=== PATIENT | male | born 1960 | race Caucasian/White ===

== ENCOUNTER 2020-07-21 21:20 | Inpatient (IN) ==
[2020-07-21] MEDS ORDERED: ONDANSETRON 4 MG/2 ML VIAL IV STA (22:19)
[2020-07-21] MEDS ORDERED: MORPHINE 4 MG/1 ML VIAL IV ONE (22:19)
[2020-07-21] MEDS ORDERED: SODIUM CHLORIDE 0.9% 1,000 ML IV STA (22:19)
[2020-07-21 22:48] LABS: Hematocrit 23.1 VOL% (42.0-52.0); Hemoglobin 8.4 GM/DL (14.0-18.0); Immature Granulocytes % 12.5 %; Immature Granulocytes Absolute 0.12 #; Lymphocytes # 0.1 10*3/uL (1.4-4.0); Lymphocytes % 14.6 % (21.2-54.2); Mean Corpuscular HGB Conc 36.4 GM/DL (32-36); Mean Corpuscular Volume 86.5 FL (87-102); Mean Platelet Volume 9.8 FL (9.6-12.0); Monocytes % 7.3 % (1.7-12.7); Neutrophils % 64.6 % (38.7-73.9); Platelet Count 169 T/CUMM (130-400); Red Blood Count 2.67 MC/CUMM (3.8-5.5); Red Cell Distribution Width 13.1 % (9.3-17.3)
[2020-07-21 23:09] LABS: Alanine Aminotransferase 12 U/L (16-61); Alkaline Phosphatase 121 U/L (45-117); Amylase 37 U/L (25-115); Aspartate Amino Transferase 10 U/L (0-37); Blood Urea Nitrogen 47 MG/DL (7-18); Calcium 8.6 MG/DL (8.5-10.1); Estimated Glom Filtration Rate 38 ML/MIN; Glucose 163 MG/DL (74-106); Osmolality,Calculated 281.4 MOS/KG (273-304); Total Protein 7.1 G/DL (6.4-8.3)
[2020-07-21 23:18] LABS: Band Neutrophils 2 % (0-10); Eosinophils 3 % (0-10); Lymphocytes 19 % (20-55); Metamyelocytes 1 %; Platelet Estimate Normal; Segmented Neutrophils 65 % (50-85); Total Cells Counted 100
[2020-07-21 23:19] LABS: Atypical Lymphocytes Few; Hypochromasia Slight; Ovalocytes Few
[2020-07-22] MEDS ORDERED: FILGRASTIM-SNDZ 300 MCG/0.5 ML SYRINGE SUBCUT ONE (00:10)
[2020-07-22] MEDS ORDERED: MORPHINE 4 MG/1 ML VIAL IV ONE (00:47)
[2020-07-22 01:08] LABS: INR 4.8; PT Patient Result 47.1 SECS (9.8-11.9); Partial Thromboplastin Time 26.8 SECS (23.9-33.8)
[2020-07-22] MEDS ORDERED: chlorproMAZINE INJ 50 MG in SODIUM CHLORIDE 0.9% 100 ML IV PRN (01:10)
[2020-07-22] MEDS ORDERED: chlorproMAZINE INJ 25 MG in SODIUM CHLORIDE 0.9% 100 ML IV PRN (01:10)
[2020-07-22] MEDS ORDERED: LACTULOSE 20 GM/30 ML UDCUP PO PRN (01:10)
[2020-07-22] MEDS ORDERED: traMADol 50 MG TABLET PO PRN (01:10)
[2020-07-22] MEDS ORDERED: chlorproMAZINE 25 MG TABLET PO PRN (01:10)
[2020-07-22] MEDS ORDERED: ALPRAZolam 0.25 MG TABLET PO PRN (01:10)
[2020-07-22] MEDS ORDERED: PROMETHAZINE INJ 25 MG in SODIUM CHLORIDE 0.9% 50 ML IV PRN (01:10)
[2020-07-22] MEDS ORDERED: diphenhydrAMINE CAP 25 MG CAPSULE PO PRN (01:10)
[2020-07-22] MEDS ORDERED: MAGNESIUM HYDROXIDE SUSP 30 ML UDCUP PO PRN (01:10)
[2020-07-22] MEDS ORDERED: BENZTROPINE 2 MG/2 ML AMP IV PRN (01:10)
[2020-07-22] MEDS: SODIUM CHLORIDE 0.9% 1,000 ML IV SCH ×2 (01:43→06:33)
[2020-07-22] MEDS: ALUMINUM/MAGNES/SIMETH MAX STR 30 ML UDCUP PO PRN ×3 (05:01→22:54)
[2020-07-22] MEDS: LOPERAMIDE 2 MG CAPSULE PO PRN ×2 (09:00→22:54)
[2020-07-22] MEDS: FILGRASTIM-SNDZ 300 MCG/0.5 ML SYRINGE SUBCUT SCH (09:00)
[2020-07-22] MEDS: DEXTROSE 5% NACL 0.9% 1,000 ML IV SCH ×3 (09:00→22:54)
[2020-07-22 09:02] LABS: Bilirubin,Urine Negative (Negative); Blood, Urine Negative (Negative); Glucose,Urine (UA) Negative (Negative); Hyaline Casts,Urine 41 /LPF (0-3); Ketones,Urine Negative (Negative); Mucus,Urine Occasional /LPF (Occasional); Nitrite,Urine Negative (Negative); Protein,Urine Negative; RBC,Urine <1 /HPF (0-4); Squamous Epithelial Cell,Urine Occasional /HPF (0-10); Urine Appearance CLEAR (Clear); Urine Color Yellow (Yellow); Urine Specific Gravity 1.017 (1.001-1.035); Urine Urobilinogen < 2.0 EU/DL (0.2-1.0); WBC,Urine <1 /HPF (0-6)
[2020-07-23 04:33] LABS: Albumin 2.2 G/DL (3.4-5.0); Bilirubin,Total 1.1 MG/DL (0.2-1.0); Calcium 7.6 MG/DL (8.5-10.1); Total Protein 5.1 G/DL (6.4-8.3)
[2020-07-23] MEDS: DEXTROSE 5% NACL 0.9% 1,000 ML IV SCH (05:18)
[2020-07-23 06:46] LABS: Eosinophils % 2.6 % (0.00-10.9); Hematocrit 18.2 VOL% (42.0-52.0); Hemoglobin 6.5 GM/DL (14.0-18.0); Immature Granulocytes % 15.4 %; Immature Granulocytes Absolute 0.18 #; Lymphocytes # 0.2 10*3/uL (1.4-4.0); Lymphocytes % 13.7 % (21.2-54.2); Mean Corpuscular HGB Conc 35.7 GM/DL (32-36); Mean Corpuscular Volume 87.1 FL (87-102); Mean Platelet Volume 9.9 FL (9.6-12.0); Monocytes % 7.7 % (1.7-12.7); Neutrophils % 60.6 % (38.7-73.9); Platelet Count 109 T/CUMM (130-400); Red Blood Count 2.09 MC/CUMM (3.8-5.5); Red Cell Distribution Width 13.2 % (9.3-17.3); White Blood Count 1.2 T/CUMM (4-12)
[2020-07-23 07:18] LABS: Atypical Lymphocytes Few; Band Neutrophils 3 % (0-10); Eosinophils 2 % (0-10); Hypochromasia 1+; Lymphocytes 19 % (20-55); Microcytosis 1+; Platelet Estimate Decreased; Segmented Neutrophils 62 % (50-85); Total Cells Counted 100
[2020-07-23] MEDS ORDERED: SODIUM CHLORIDE 0.9% 1,000 ML IV PRN (07:57)
[2020-07-23] MEDS: FILGRASTIM-SNDZ 300 MCG/0.5 ML SYRINGE SUBCUT SCH (08:25)
[2020-07-23] MEDS: DEXT 5% NACL 0.45% KCL 20 MEQ 20 MEQ/1,000 ML BAG IV SCH ×3 (09:44→20:41)
[2020-07-23] MEDS: LOPERAMIDE 2 MG CAPSULE PO PRN ×2 (11:45→18:57)
[2020-07-23] MEDS: ALUMINUM/MAGNES/SIMETH MAX STR 30 ML UDCUP PO PRN (18:57)
[2020-07-23] MEDS: TEMAZEPAM 7.5 MG CAPSULE PO PRN (20:36)
[2020-07-24] MEDS: ALUMINUM/MAGNES/SIMETH MAX STR 30 ML UDCUP PO PRN ×4 (00:21→20:21)
[2020-07-24 04:07] LABS: Eosinophils # 0.1 10*3/uL (0.0-0.87); Eosinophils % 10.4 % (0.00-10.9); Hematocrit 31.5 VOL% (42.0-52.0); Hemoglobin 11.2 GM/DL (14.0-18.0); Immature Granulocytes % 7.5 %; Immature Granulocytes Absolute 0.08 #; Lymphocytes # 0.3 10*3/uL (1.4-4.0); Lymphocytes % 23.6 % (21.2-54.2); Mean Corpuscular HGB Conc 35.6 GM/DL (32-36); Mean Corpuscular Volume 85.1 FL (87-102); Mean Platelet Volume 9.7 FL (9.6-12.0); Monocytes % 17.9 % (1.7-12.7); Neutrophils % 40.6 % (38.7-73.9); Platelet Count 138 T/CUMM (130-400); Red Cell Distribution Width 13.5 % (9.3-17.3); White Blood Count 1.1 T/CUMM (4-12)
[2020-07-24] MEDS: DEXT 5% NACL 0.45% KCL 20 MEQ 20 MEQ/1,000 ML BAG IV SCH ×2 (04:29→09:47)
[2020-07-24 04:30] LABS: Albumin 2.3 G/DL (3.4-5.0); Bilirubin,Total 2.9 MG/DL (0.2-1.0); Calcium 7.4 MG/DL (8.5-10.1); Osmolality,Calculated 258.5 MOS/KG (273-304); Total Protein 5.6 G/DL (6.4-8.3)
[2020-07-24 06:29] LABS: Band Neutrophils 4 % (0-10); Eosinophils 12 % (0-10); Lymphocytes 32 % (20-55); Platelet Estimate Adequate; Segmented Neutrophils 30 % (50-85); Smudge Cells Few; Total Cells Counted 100
[2020-07-24 06:30] LABS: Anisocytosis 1+
[2020-07-24] MEDS: guaiFENesin 200 MG/10 ML UDCUP PO PRN ×3 (06:32→20:21)
[2020-07-24] MEDS: FILGRASTIM-SNDZ 300 MCG/0.5 ML SYRINGE SUBCUT SCH (09:48)
[2020-07-24] MEDS: LOPERAMIDE 2 MG CAPSULE PO PRN ×3 (09:48→20:21)
[2020-07-24] MEDS: SODIUM CHLOR 0.9% KCL 20 MEQ 20 MEQ/1,000 ML BAG IV SCH ×2 (12:26→21:06)
[2020-07-24] MEDS: CETIRIZINE 10 MG TABLET PO SCH (13:43)
[2020-07-24] MEDS: TEMAZEPAM 7.5 MG CAPSULE PO PRN (20:20)
[2020-07-24] MEDS: MYLANTA/LIDO VISC 2:1 300 ML BOTTLE SWISH/SPIT PRN (20:20)
[2020-07-24] MEDS: MYLANTA/LIDO VISC 2:1 300 ML BOTTLE SWISH/SWAL PRN (20:26)
[2020-07-25] MEDS: MYLANTA/LIDO VISC 2:1 300 ML BOTTLE SWISH/SWAL PRN (00:05)
[2020-07-25] MEDS: guaiFENesin 200 MG/10 ML UDCUP PO PRN (00:05)
[2020-07-25] MEDS: LOPERAMIDE 2 MG CAPSULE PO PRN (00:05)
[2020-07-25] MEDS: SODIUM CHLOR 0.9% KCL 20 MEQ 20 MEQ/1,000 ML BAG IV SCH (04:58)
[2020-07-25 05:39] LABS: Basophils % 1.3 % (0.0-0.8); Eosinophils # 0.1 10*3/uL (0.0-0.87); Eosinophils % 4.4 % (0.00-10.9); Hematocrit 35.1 VOL% (42.0-52.0); Hemoglobin 12.8 GM/DL (14.0-18.0); Immature Granulocytes % 4.4 %; Immature Granulocytes Absolute 0.07 #; Lymphocytes # 0.2 10*3/uL (1.4-4.0); Lymphocytes % 14.4 % (21.2-54.2); Mean Corpuscular HGB Conc 36.5 GM/DL (32-36); Mean Corpuscular Volume 84.6 FL (87-102); Mean Platelet Volume 10.2 FL (9.6-12.0); Monocytes % 23.1 % (1.7-12.7); Neutrophils % 52.4 % (38.7-73.9); Platelet Count 187 T/CUMM (130-400); Red Blood Count 4.15 MC/CUMM (3.8-5.5); Red Cell Distribution Width 13.5 % (9.3-17.3); White Blood Count 1.6 T/CUMM (4-12)
[2020-07-25 05:54] LABS: Albumin 2.4 G/DL (3.4-5.0); Bilirubin,Total 3.7 MG/DL (0.2-1.0); Calcium 7.7 MG/DL (8.5-10.1); Osmolality,Calculated 258.9 MOS/KG (273-304); Total Protein 6.3 G/DL (6.4-8.3)
[2020-07-25 07:01] LABS: Band Neutrophils 11 % (0-10); Eosinophils 3 % (0-10); Lymphocytes 22 % (20-55); Segmented Neutrophils 30 % (50-85); Total Cells Counted 100
[2020-07-25 07:02] LABS: Anisocytosis 1+; Ovalocytes 1+; Platelet Estimate Normal
[2020-07-25] MEDS: FILGRASTIM-SNDZ 300 MCG/0.5 ML SYRINGE SUBCUT SCH (08:58)
[2020-07-25] MEDS: CETIRIZINE 10 MG TABLET PO SCH (08:58)
[2020-07-25 12:53] LABS: Calcium 7.9 MG/DL (8.5-10.1); Osmolality,Calculated 258.3 MOS/KG (273-304)
[2020-07-25 13:19] LABS: Free T4 (Free Thyroxine) 1.34 NG/DL (0.76-1.46); Thyroid Stimulating Hormone 0.58 uIU/ml (0.358-3.74)
[2020-07-25] MEDS ORDERED: MAGNESIUM SULF RIDER 4 GM in PREMIX 1 EACH IV PRN (13:31)
[2020-07-25] MEDS ORDERED: POTASSIUM CHLORIDE 20 MEQ TABLET PO PRN (13:31)
[2020-07-25 13:54] LABS: Calcium 7.9 MG/DL (8.5-10.1); Osmolality,Calculated 260.3 MOS/KG (273-304)
[2020-07-25 14:56] LABS: Bilirubin,Urine Negative (Negative); Blood, Urine Moderate mg/dL (Negative); Glucose,Urine (UA) Negative (Negative); Hyaline Casts,Urine 14 /LPF (0-3); Ketones,Urine Negative (Negative); Mucus,Urine Occasional /LPF (Occasional); Nitrite,Urine Negative (Negative); Protein,Urine Negative; RBC,Urine 4 /HPF (0-4); Squamous Epithelial Cell,Urine Occasional /HPF (0-10); Urine Appearance CLEAR (Clear); Urine Color Amber (Yellow); Urine Specific Gravity 1.019 (1.001-1.035); Urine Urobilinogen < 2.0 EU/DL (0.2-1.0); WBC,Urine 5 /HPF (0-6)
[2020-07-25] MEDS ORDERED: SODIUM CHLORIDE 0.9% 1,000 ML IV ONE ×2 (15:22→15:28)
[2020-07-25] MEDS ORDERED: NOREPINEPHRINE 4 MG/4 ML VIAL IV ONE (15:23)
[2020-07-25 15:26] LABS: Hepatitis B Surface Ag Quant < 0.10 Index; Hepatitis B Surface Ag Result Negative (Negative); Hepatitis C Virus Ab Result Negative (Negative)
[2020-07-25] MEDS ORDERED: SODIUM CHLORIDE 0.9% 1,000 ML IV SCH (15:30)
[2020-07-25] MEDS: NOREPINEPHRINE 8 MG in SODIUM CHLORIDE 0.9% 242 ML IV PRN (15:30)
[2020-07-25] MEDS ORDERED: SUCCINYLCHOLINE 200 MG/10 ML VIAL ONE (15:36)
[2020-07-25] MEDS ORDERED: MIDAZOLAM 2 MG/2 ML VIAL IV ONE ×2 (15:36→16:15)
[2020-07-25] MEDS ORDERED: MIDAZOLAM 10 MG/2 ML VIAL ONE (15:36)
[2020-07-25] MEDS ORDERED: SUCCINYLCHOLINE 200 MG/10 ML VIAL IV ONE (15:40)
[2020-07-25] MEDS ORDERED: CALCIUM GLUCONATE 1,000 MG in SODIUM CHLORIDE 0.9% 100 ML IV ONE (15:48)
[2020-07-25] MEDS ORDERED: MIDAZOLAM 100 MG in SODIUM CHLORIDE 0.9% 80 ML IV PRN (15:53)
[2020-07-25 16:02] LABS: Basophils % 0.7 % (0.0-0.8); Eosinophils % 0.7 % (0.00-10.9); Hematocrit 36.6 VOL% (42.0-52.0); Hemoglobin 12.9 GM/DL (14.0-18.0); Immature Granulocytes % 9.6 %; Immature Granulocytes Absolute 0.26 #; Lymphocytes # 0.6 10*3/uL (1.4-4.0); Lymphocytes % 20.7 % (21.2-54.2); Mean Corpuscular HGB Conc 35.2 GM/DL (32-36); Mean Platelet Volume 10.7 FL (9.6-12.0); Monocytes % 8.1 % (1.7-12.7); NRBC # 0.07 10*3/uL; Neutrophils % 60.2 % (38.7-73.9); Platelet Count 224 T/CUMM (130-400); Red Blood Count 4.16 MC/CUMM (3.8-5.5); Red Cell Distribution Width 13.8 % (9.3-17.3); White Blood Count 2.7 T/CUMM (4-12)
[2020-07-25 16:22] LABS: ABG Base Excess -7.2 MMOL/L (-2.5-2.5); ABG HCO3 18.6 MMOL/L (20-26); ABG PCO2 29.8 MM HG (35-48); ABG PH 7.364 (7.35-7.45); ABG PO2 92.5 MM HG (80-95); ABG TCO2 15.1 MMOL/L (23-27)
[2020-07-25 16:26] LABS: Calcium 7.6 MG/DL (8.5-10.1); Osmolality,Calculated 264.1 MOS/KG (273-304)
[2020-07-25 17:09] LABS: Band Neutrophils 11 % (0-10); Eosinophils 1 % (0-10); Lymphocytes 27 % (20-55); Platelet Estimate Adequate; Segmented Neutrophils 50 % (50-85); Total Cells Counted 100
[2020-07-25 17:10] LABS: Anisocytosis Slight
[2020-07-25] MEDS: PIPERACILLIN/TAZOBACTAM 3,375 MG in SODIUM CHLORIDE 0.9% 100 ML IV SCH (17:36)
[2020-07-25] MEDS: SODIUM BICARB INJ 150 MEQ in STERILE WATER INJ 850 ML IV SCH (17:36)
[2020-07-25] MEDS: VANCOMYCIN 50 MG/ML 60 ML/BOTTLE PO SCH (17:37)
[2020-07-25 17:55] LABS: Calcium 7.3 MG/DL (8.5-10.1); Osmolality,Calculated 272.2 MOS/KG (273-304)
[2020-07-25] MEDS ORDERED: VANCOMYCIN INJ 1,500 MG in SODIUM CHLORIDE 0.9% 500 ML IV ONE (18:00)
[2020-07-25] MEDS ORDERED: GLUCAGON 1 MG VIAL IM PRN (18:01)
[2020-07-25] MEDS ORDERED: DEXTROSE 50% 25 GM/50 ML VIAL IV PRN (18:01)
[2020-07-25] MEDS: POTASSIUM CHLORIDE RIDER 20 MEQ in PREMIX 1 EACH IV PRN ×2 (18:12→19:38)
[2020-07-25] MEDS ORDERED: ALBUMIN 25% 50 GM in PREMIX 1 EACH IV PRN (18:48)
[2020-07-25] MEDS ORDERED: ALBUMIN 25% 50 GM in PREMIX 1 EACH IV ONE (19:00)
[2020-07-25 20:33] LABS: ABG Base Excess -2.7 MMOL/L (-2.5-2.5); ABG HCO3 22.2 MMOL/L (20-26); ABG Oxygen Saturation 98.6 % (95-100); ABG PCO2 31.5 MM HG (35-48); ABG PH 7.429 (7.35-7.45); ABG TCO2 18.9 MMOL/L (23-27)
[2020-07-25] MEDS: POTASSIUM CHLORIDE RIDER 10 MEQ in PREMIX 1 EACH IV PRN (20:40)
[2020-07-25 20:56] LABS: Calcium 7.3 MG/DL (8.5-10.1); Osmolality,Calculated 270.5 MOS/KG (273-304)
[2020-07-26] MEDS: VANCOMYCIN 50 MG/ML 60 ML/BOTTLE PO SCH ×5 (00:56→23:06)
[2020-07-26 03:26] LABS: Calcium 7.8 MG/DL (8.5-10.1); Osmolality,Calculated 271.4 MOS/KG (273-304)
[2020-07-26] MEDS: POTASSIUM CHLORIDE RIDER 20 MEQ in PREMIX 1 EACH IV PRN ×4 (03:42→20:04)
[2020-07-26] MEDS: SODIUM BICARB INJ 150 MEQ in STERILE WATER INJ 850 ML IV SCH (03:43)
[2020-07-26 04:07] LABS: ABG Base Excess 6.8 MMOL/L (-2.5-2.5); ABG HCO3 28.6 MMOL/L (20-26); ABG Oxygen Saturation 98.8 % (95-100); ABG PCO2 31.6 MM HG (35-48); ABG PH 7.575 (7.35-7.45); ABG TCO2 29.6 MMOL/L (23-27)
[2020-07-26 04:36] LABS: Basophils % 1.1 % (0.0-0.8); Eosinophils % 0.6 % (0.00-10.9); Hematocrit 24.8 VOL% (42.0-52.0); Hemoglobin 9.2 GM/DL (14.0-18.0); Immature Granulocytes % 11.8 %; Immature Granulocytes Absolute 0.42 #; Lymphocytes # 0.3 10*3/uL (1.4-4.0); Lymphocytes % 7.3 % (21.2-54.2); Mean Corpuscular HGB Conc 37.1 GM/DL (32-36); Mean Corpuscular Volume 84.4 FL (87-102); Mean Platelet Volume 10.7 FL (9.6-12.0); Monocytes % 8.7 % (1.7-12.7); NRBC # 0.05 10*3/uL; Neutrophils % 70.5 % (38.7-73.9); Platelet Count 155 T/CUMM (130-400); Red Blood Count 2.94 MC/CUMM (3.8-5.5); Red Cell Distribution Width 13.2 % (9.3-17.3); White Blood Count 3.6 T/CUMM (4-12)
[2020-07-26 05:12] LABS: Band Neutrophils 14 % (0-10); Lymphocytes 8 % (20-55); Metamyelocytes 1 %; Myelocytes 2 %; Segmented Neutrophils 67 % (50-85); Total Cells Counted 100
[2020-07-26 05:13] LABS: Hypochromasia 1+; Microcytosis 1+; Ovalocytes Slight; Platelet Estimate Adequate
[2020-07-26] MEDS: PIPERACILLIN/TAZOBACTAM 3,375 MG in SODIUM CHLORIDE 0.9% 100 ML IV SCH (05:28)
[2020-07-26] MEDS: NOREPINEPHRINE 8 MG in SODIUM CHLORIDE 0.9% 242 ML IV PRN (05:29)
[2020-07-26 05:31] LABS: Bilirubin,Total 4.6 MG/DL (0.2-1.0); Calcium 7.7 MG/DL (8.5-10.1); Osmolality,Calculated 267.6 MOS/KG (273-304); Total Protein 5.8 G/DL (6.4-8.3)
[2020-07-26] MEDS: POTASSIUM CHLORIDE RIDER 10 MEQ in PREMIX 1 EACH IV PRN (05:49)
[2020-07-26 06:31] LABS: Calcium 7.7 MG/DL (8.5-10.1); Osmolality,Calculated 269.5 MOS/KG (273-304)
[2020-07-26] MEDS ORDERED: COSYNTROPIN 0.25 MG VIAL IV ONE ×2 (08:00)
[2020-07-26] MEDS: DEXT 5% NACL 0.9% KCL 20 MEQ 20 MEQ/1,000 ML BAG IV SCH ×4 (08:49→23:05)
[2020-07-26] MEDS: MEROPENEM 500 MG in SODIUM CHLORIDE 0.9% 100 ML IV SCH ×2 (08:51→20:05)
[2020-07-26] MEDS: FILGRASTIM-SNDZ 300 MCG/0.5 ML SYRINGE SUBCUT SCH (08:54)
[2020-07-26] MEDS: PANTOPRAZOLE 40 MG VIAL IV SCH (08:57)
[2020-07-26] MEDS: MENTHOL/ZINC OXIDE OINT 71 GM JAR TOP SCH ×2 (15:42→23:06)
[2020-07-26] MEDS: RIFAMPIN INJ 600 MG in SODIUM CHLORIDE 0.9% 100 ML IV SCH (15:43)
[2020-07-26 16:24] LABS: Albumin 2.4 G/DL (3.4-5.0); Bilirubin,Total 3.4 MG/DL (0.2-1.0); Calcium 7.1 MG/DL (8.5-10.1); Osmolality,Calculated 281.9 MOS/KG (273-304); Total Protein 5.1 G/DL (6.4-8.3)
[2020-07-26] MEDS: INSULIN LISPRO 100 UNIT/ML SUBCUT SCH (17:12)
[2020-07-26] MEDS ORDERED: VANCOMYCIN INJ 1,000 MG in SODIUM CHLORIDE 0.9% 250 ML IV PRN (18:00)
[2020-07-27] MEDS: DEXT 5% NACL 0.9% KCL 20 MEQ 20 MEQ/1,000 ML BAG IV SCH ×5 (00:29→21:46)
[2020-07-27] MEDS: INSULIN LISPRO 100 UNIT/ML SUBCUT SCH ×4 (01:04→17:36)
[2020-07-27 04:56] LABS: ABG Base Excess -1.4 MMOL/L (-2.5-2.5); ABG HCO3 23.2 MMOL/L (20-26); ABG Oxygen Saturation 97.5 % (95-100); ABG PCO2 32.9 MM HG (35-48); ABG PH 7.439 (7.35-7.45); ABG PO2 96.9 MM HG (80-95); ABG TCO2 20.6 MMOL/L (23-27)
[2020-07-27 05:24] LABS: Basophils % 0.3 % (0.0-0.8); Eosinophils % 0.3 % (0.00-10.9); Hematocrit 24.9 VOL% (42.0-52.0); Hemoglobin 8.8 GM/DL (14.0-18.0); Immature Granulocytes % 11.1 %; Immature Granulocytes Absolute 1.09 #; Lymphocytes # 0.3 10*3/uL (1.4-4.0); Lymphocytes % 2.6 % (21.2-54.2); Mean Corpuscular HGB Conc 35.3 GM/DL (32-36); Mean Corpuscular Volume 87.7 FL (87-102); Monocytes % 6.9 % (1.7-12.7); NRBC # 0.06 10*3/uL; Neutrophils % 78.8 % (38.7-73.9); Platelet Count 106 T/CUMM (130-400); Red Blood Count 2.84 MC/CUMM (3.8-5.5); Red Cell Distribution Width 13.9 % (9.3-17.3); White Blood Count 9.9 T/CUMM (4-12)
[2020-07-27 05:31] LABS: Albumin 2.1 G/DL (3.4-5.0); Calcium 7.4 MG/DL (8.5-10.1); Osmolality,Calculated 292.7 MOS/KG (273-304); Total Protein 4.7 G/DL (6.4-8.3)
[2020-07-27 05:49] LABS: Band Neutrophils 9 % (0-10); Lymphocytes 4 % (20-55); Platelet Estimate Decreased; Segmented Neutrophils 77 % (50-85); Total Cells Counted 100
[2020-07-27 05:50] LABS: Burr Cells Few; Hypochromasia 1+; Microcytosis 1+; Ovalocytes Slight
[2020-07-27] MEDS: VANCOMYCIN 50 MG/ML 60 ML/BOTTLE PO SCH ×2 (06:18→14:03)
[2020-07-27] MEDS ORDERED: LINEZOLID INJ 600 MG in PREMIX 1 EACH IV SCH (08:00)
[2020-07-27] MEDS: PANTOPRAZOLE 40 MG VIAL IV SCH (08:40)
[2020-07-27] MEDS: MENTHOL/ZINC OXIDE OINT 71 GM JAR TOP SCH ×2 (08:40→21:45)
[2020-07-27] MEDS: MEROPENEM 500 MG in SODIUM CHLORIDE 0.9% 100 ML IV SCH ×2 (08:40→22:15)
[2020-07-27] MEDS: FILGRASTIM-SNDZ 300 MCG/0.5 ML SYRINGE SUBCUT SCH (08:41)
[2020-07-27 15:24] LABS: Albumin 1.9 G/DL (3.4-5.0); Bilirubin,Total 4.2 MG/DL (0.2-1.0); Calcium 7.3 MG/DL (8.5-10.1); Osmolality,Calculated 298.8 MOS/KG (273-304); Total Protein 4.4 G/DL (6.4-8.3)
[2020-07-27] MEDS: RIFAMPIN INJ 600 MG in SODIUM CHLORIDE 0.9% 100 ML IV SCH (16:19)
[2020-07-28] MEDS: INSULIN LISPRO 100 UNIT/ML SUBCUT SCH ×4 (03:41→17:42)
[2020-07-28] MEDS: DEXT 5% NACL 0.9% KCL 20 MEQ 20 MEQ/1,000 ML BAG IV SCH ×3 (04:16→12:10)
[2020-07-28 05:27] LABS: ABG Base Excess -2.4 MMOL/L (-2.5-2.5); ABG HCO3 22.4 MMOL/L (20-26); ABG Oxygen Saturation 98.9 % (95-100); ABG PCO2 32.3 MM HG (35-48); ABG PH 7.428 (7.35-7.45); ABG TCO2 19.7 MMOL/L (23-27)
[2020-07-28 06:11] LABS: Basophils % 0.1 % (0.0-0.8); Eosinophils # 0.1 10*3/uL (0.0-0.87); Eosinophils % 0.4 % (0.00-10.9); Hematocrit 20.8 VOL% (42.0-52.0); Immature Granulocytes % 17.5 %; Immature Granulocytes Absolute 2.07 #; Lymphocytes # 0.4 10*3/uL (1.4-4.0); Lymphocytes % 3.5 % (21.2-54.2); Mean Corpuscular HGB Conc 33.2 GM/DL (32-36); Mean Corpuscular Volume 92.4 FL (87-102); Monocytes % 11.2 % (1.7-12.7); NRBC # 0.06 10*3/uL; Neutrophils % 67.3 % (38.7-73.9); Red Cell Distribution Width 14.6 % (9.3-17.3); White Blood Count 11.9 T/CUMM (4-12)
[2020-07-28 06:15] LABS: Hemoglobin 6.9 GM/DL (14.0-18.0); Red Blood Count 2.25 MC/CUMM (3.8-5.5)
[2020-07-28 06:16] LABS: Platelet Count 94 T/CUMM (130-400)
[2020-07-28 06:31] LABS: Band Neutrophils 4 % (0-10); Eosinophils 1 % (0-10); Lymphocytes 7 % (20-55); Myelocytes 3 %; Segmented Neutrophils 77 % (50-85); Total Cells Counted 100
[2020-07-28 06:32] LABS: Burr Cells Slight; Hypochromasia 1+; Microcytosis Slight; Ovalocytes Slight; Platelet Estimate Decreased
[2020-07-28] MEDS ORDERED: SODIUM CHLORIDE 0.9% 1,000 ML IV PRN (07:17)
[2020-07-28 07:28] LABS: Albumin 1.8 G/DL (3.4-5.0); Bilirubin,Total 5.7 MG/DL (0.2-1.0); Calcium 7.7 MG/DL (8.5-10.1); Osmolality,Calculated 304.1 MOS/KG (273-304); Total Protein 4.3 G/DL (6.4-8.3)
[2020-07-28 07:40] LABS: Prealbumin 3.2 MG/DL (20-40)
[2020-07-28] MEDS: MEROPENEM 500 MG in SODIUM CHLORIDE 0.9% 100 ML IV SCH ×2 (09:24→20:38)
[2020-07-28] MEDS: PANTOPRAZOLE 40 MG VIAL IV SCH (09:24)
[2020-07-28] MEDS: MENTHOL/ZINC OXIDE OINT 71 GM JAR TOP SCH ×2 (09:24→20:39)
[2020-07-28] MEDS: CHOLESTYRAMINE 4 GM PACK PO SCH ×2 (09:24→20:38)
[2020-07-28] MEDS: LINEZOLID INJ 600 MG in PREMIX 1 EACH IV SCH ×2 (09:25→20:39)
[2020-07-28] MEDS: LORazepam 2 MG/1 ML VIAL IV PRN ×2 (12:55→17:56)
[2020-07-28] MEDS: RIFAMPIN INJ 600 MG in SODIUM CHLORIDE 0.9% 100 ML IV SCH (15:37)
[2020-07-28] MEDS: METOPROLOL TARTRATE 25 MG TABLET PO SCH ×2 (15:43→20:38)
[2020-07-28 17:34] LABS: Albumin 1.7 G/DL (3.4-5.0); Bilirubin,Total 6.2 MG/DL (0.2-1.0); Calcium 7.9 MG/DL (8.5-10.1); Osmolality,Calculated 301.9 MOS/KG (273-304); Total Protein 4.3 G/DL (6.4-8.3)
[2020-07-29] MEDS: INSULIN LISPRO 100 UNIT/ML SUBCUT SCH ×6 (00:44→21:27)
[2020-07-29 04:44] LABS: ABG Base Excess -2.4 MMOL/L (-2.5-2.5); ABG HCO3 22.4 MMOL/L (20-26); ABG Oxygen Saturation 98.3 % (95-100); ABG PH 7.471 (7.35-7.45); ABG PO2 96.9 MM HG (80-95); ABG TCO2 18.7 MMOL/L (23-27)
[2020-07-29 05:03] LABS: Basophils % 0.2 % (0.0-0.8); Eosinophils # 0.1 10*3/uL (0.0-0.87); Eosinophils % 0.6 % (0.00-10.9); Hematocrit 29.3 VOL% (42.0-52.0); Immature Granulocytes % 12.6 %; Immature Granulocytes Absolute 1.07 #; Lymphocytes # 0.5 10*3/uL (1.4-4.0); Lymphocytes % 6.1 % (21.2-54.2); Mean Corpuscular HGB Conc 34.1 GM/DL (32-36); Mean Corpuscular Volume 89.6 FL (87-102); Mean Platelet Volume 10.2 FL (9.6-12.0); Monocytes % 12.2 % (1.7-12.7); NRBC # 0.03 10*3/uL; Neutrophils % 68.3 % (38.7-73.9); Red Cell Distribution Width 15.3 % (9.3-17.3); White Blood Count 8.5 T/CUMM (4-12)
[2020-07-29 05:05] LABS: Red Blood Count 3.27 MC/CUMM (3.8-5.5)
[2020-07-29 05:06] LABS: Platelet Count 60 T/CUMM (130-400)
[2020-07-29 05:24] LABS: Band Neutrophils 3 % (0-10); Hypochromasia 1+; Lymphocytes 5 % (20-55); Microcytosis 1+; Nucleated Red Blood Cells 1 (0-5); Platelet Estimate Decreased; Segmented Neutrophils 81 % (50-85); Total Cells Counted 100
[2020-07-29 05:26] LABS: Albumin 1.7 G/DL (3.4-5.0); Bilirubin,Total 6.7 MG/DL (0.2-1.0); Calcium 7.8 MG/DL (8.5-10.1); Osmolality,Calculated 304.7 MOS/KG (273-304); Total Protein 4.1 G/DL (6.4-8.3)
[2020-07-29] MEDS: DEXT 5% NACL 0.9% KCL 20 MEQ 20 MEQ/1,000 ML BAG IV SCH (05:51)
[2020-07-29] MEDS: LORazepam 2 MG/1 ML VIAL IV PRN ×3 (07:26→22:30)
[2020-07-29] MEDS: DEXT 5% NACL 0.45% KCL 20 MEQ 20 MEQ/1,000 ML BAG IV SCH ×3 (09:27→20:30)
[2020-07-29] MEDS: PANTOPRAZOLE 40 MG VIAL IV SCH (09:29)
[2020-07-29] MEDS: MENTHOL/ZINC OXIDE OINT 71 GM JAR TOP SCH ×2 (09:29→21:00)
[2020-07-29] MEDS: LINEZOLID INJ 600 MG in PREMIX 1 EACH IV SCH ×2 (09:29→21:00)
[2020-07-29] MEDS: MEROPENEM 500 MG in SODIUM CHLORIDE 0.9% 100 ML IV SCH ×2 (09:29→20:53)
[2020-07-29] MEDS: CHOLESTYRAMINE 4 GM PACK PO SCH ×2 (10:10→20:53)
[2020-07-29] MEDS: METOPROLOL TARTRATE 25 MG TABLET PO SCH ×2 (10:10→20:53)
[2020-07-29 10:40] LABS: PT Patient Result 82.8 SECS (9.8-11.9)
[2020-07-29 10:42] LABS: INR 8.7
[2020-07-29] MEDS: RIFAMPIN INJ 600 MG in SODIUM CHLORIDE 0.9% 100 ML IV SCH (16:09)
[2020-07-29] MEDS: PHYTONADIONE INJ 5 MG in SODIUM CHLORIDE 0.9% 50 ML IV SCH (16:09)
[2020-07-30] MEDS: DEXT 5% NACL 0.45% KCL 20 MEQ 20 MEQ/1,000 ML BAG IV SCH ×4 (01:48→23:02)
[2020-07-30 05:59] LABS: Basophils % 0.1 % (0.0-0.8); Eosinophils % 0.3 % (0.00-10.9); Hematocrit 30.2 VOL% (42.0-52.0); Hemoglobin 10.2 GM/DL (14.0-18.0); Immature Granulocytes % 6.8 %; Lymphocytes # 0.6 10*3/uL (1.4-4.0); Lymphocytes % 8.1 % (21.2-54.2); Mean Corpuscular HGB Conc 33.8 GM/DL (32-36); Mean Corpuscular Volume 91.2 FL (87-102); Mean Platelet Volume 10.3 FL (9.6-12.0); Monocytes % 11.8 % (1.7-12.7); Neutrophils % 72.9 % (38.7-73.9); Platelet Count 53 T/CUMM (130-400); Red Blood Count 3.31 MC/CUMM (3.8-5.5); Red Cell Distribution Width 15.9 % (9.3-17.3); White Blood Count 7.4 T/CUMM (4-12)
[2020-07-30 06:21] LABS: Lymphocytes 10 % (20-55); Platelet Estimate Decreased; Segmented Neutrophils 83 % (50-85); Total Cells Counted 100
[2020-07-30 06:22] LABS: Hypochromasia 1+; Microcytosis 1+
[2020-07-30 06:30] LABS: Albumin 1.7 G/DL (3.4-5.0); Bilirubin,Total 7.5 MG/DL (0.2-1.0); Calcium 8.1 MG/DL (8.5-10.1); Osmolality,Calculated 296.3 MOS/KG (273-304); Total Protein 4.4 G/DL (6.4-8.3)
[2020-07-30] MEDS: INSULIN LISPRO 100 UNIT/ML SUBCUT SCH ×4 (07:47→20:01)
[2020-07-30 09:01] LABS: INR 1.8; PT Patient Result 18.7 SECS (9.8-11.9)
[2020-07-30] MEDS ORDERED: SODIUM CHLORIDE 0.9% 1,000 ML IV PRN (09:11)
[2020-07-30 09:17] LABS: ABG Base Excess -4.2 MMOL/L (-2.5-2.5); ABG HCO3 20.9 MMOL/L (20-26); ABG Oxygen Saturation 97.8 % (95-100); ABG PO2 85.9 MM HG (80-95); ABG TCO2 16.5 MMOL/L (23-27); Allen Test Positive; Pt O2 Delivery Device Room Air
[2020-07-30] MEDS: CHOLESTYRAMINE 4 GM PACK PO SCH ×2 (09:47→20:09)
[2020-07-30] MEDS: PANTOPRAZOLE 40 MG VIAL IV SCH (09:47)
[2020-07-30] MEDS: MEROPENEM 500 MG in SODIUM CHLORIDE 0.9% 100 ML IV SCH ×2 (09:47→21:30)
[2020-07-30] MEDS: METOPROLOL TARTRATE 25 MG TABLET PO SCH ×2 (09:47→20:09)
[2020-07-30] MEDS: LINEZOLID INJ 600 MG in PREMIX 1 EACH IV SCH ×2 (09:48→21:30)
[2020-07-30] MEDS: MENTHOL/ZINC OXIDE OINT 71 GM JAR TOP SCH ×2 (10:25→22:03)
[2020-07-30] MEDS: PHYTONADIONE INJ 5 MG in SODIUM CHLORIDE 0.9% 50 ML IV SCH (11:00)
[2020-07-30] MEDS ORDERED: INFLUENZA VIRUS VACCINE 0.5 ML SYRINGE IM ONE (13:30)
[2020-07-30] MEDS: RIFAMPIN INJ 600 MG in SODIUM CHLORIDE 0.9% 100 ML IV SCH (16:53)
[2020-07-30] MEDS ORDERED: FAMOTIDINE 20 MG TABLET PO ONE (18:01)
[2020-07-30] MEDS ORDERED: methylPREDNISolone SOD SUC 40 MG/1 ML VIAL IV ONE (18:01)
[2020-07-30] MEDS: ACETAMINOPHEN 325 MG TABLET PO PRN (18:58)
[2020-07-30] MEDS ORDERED: guaiFENesin 200 MG/10 ML UDCUP PO PRN (22:06)
[2020-07-31 04:01] LABS: Eosinophils % 0.2 % (0.00-10.9); Hematocrit 21.9 VOL% (42.0-52.0); Hemoglobin 7.2 GM/DL (14.0-18.0); Immature Granulocytes % 5.4 %; Immature Granulocytes Absolute 0.22 #; Lymphocytes # 0.5 10*3/uL (1.4-4.0); Lymphocytes % 11.7 % (21.2-54.2); Mean Corpuscular HGB Conc 32.9 GM/DL (32-36); Mean Platelet Volume 12.2 FL (9.6-12.0); Monocytes % 14.4 % (1.7-12.7); Neutrophils % 68.3 % (38.7-73.9); Red Blood Count 2.38 MC/CUMM (3.8-5.5); Red Cell Distribution Width 15.9 % (9.3-17.3); White Blood Count 4.1 T/CUMM (4-12)
[2020-07-31 04:09] LABS: Platelet Count 35 T/CUMM (130-400)
[2020-07-31 04:21] LABS: Albumin 1.6 G/DL (3.4-5.0); Bilirubin,Total 4.2 MG/DL (0.2-1.0); Calcium 7.5 MG/DL (8.5-10.1); Osmolality,Calculated 278.7 MOS/KG (273-304); Total Protein 4.2 G/DL (6.4-8.3)
[2020-07-31] MEDS: DEXT 5% NACL 0.45% KCL 20 MEQ 20 MEQ/1,000 ML BAG IV SCH ×2 (04:48→17:48)
[2020-07-31 05:13] LABS: Band Neutrophils 1 % (0-10); Eosinophils 1 % (0-10); Lymphocytes 13 % (20-55); Segmented Neutrophils 77 % (50-85); Total Cells Counted 100
[2020-07-31 05:14] LABS: Hypochromasia 1+; Microcytosis 1+; Platelet Estimate Decreased
[2020-07-31] MEDS ORDERED: SODIUM CHLORIDE 0.9% 1,000 ML IV PRN (07:08)
[2020-07-31 07:31] LABS: INR 1.4; PT Patient Result 15.1 SECS (9.8-11.9)
[2020-07-31] MEDS: INSULIN LISPRO 100 UNIT/ML SUBCUT SCH ×4 (07:44→20:28)
[2020-07-31] MEDS: MEROPENEM 500 MG in SODIUM CHLORIDE 0.9% 100 ML IV SCH ×2 (08:23→20:27)
[2020-07-31] MEDS: MENTHOL/ZINC OXIDE OINT 71 GM JAR TOP SCH ×2 (09:15→20:28)
[2020-07-31] MEDS: CHOLESTYRAMINE 4 GM PACK PO SCH ×2 (09:16→20:27)
[2020-07-31] MEDS: METOPROLOL TARTRATE 25 MG TABLET PO SCH ×2 (09:16→20:27)
[2020-07-31] MEDS: PANTOPRAZOLE 40 MG VIAL IV SCH (09:16)
[2020-07-31] MEDS: PHYTONADIONE INJ 5 MG in SODIUM CHLORIDE 0.9% 50 ML IV SCH (10:00)
[2020-07-31] MEDS: VANCOMYCIN INJ 500 MG in SODIUM CHLORIDE 0.9% 100 ML IV SCH (11:14)
[2020-07-31 11:51] LABS: INR 1.3
[2020-07-31] MEDS: RIFAMPIN INJ 600 MG in SODIUM CHLORIDE 0.9% 100 ML IV SCH (16:48)
[2020-08-01] MEDS: VANCOMYCIN INJ 500 MG in SODIUM CHLORIDE 0.9% 100 ML IV SCH ×2 (00:12→12:24)
[2020-08-01] MEDS: DEXT 5% NACL 0.45% KCL 20 MEQ 20 MEQ/1,000 ML BAG IV SCH ×3 (01:13→17:02)
[2020-08-01 05:44] LABS: Basophils % 0.2 % (0.0-0.8); Eosinophils % 0.6 % (0.00-10.9); Hematocrit 29.7 VOL% (42.0-52.0); Immature Granulocytes % 3.5 %; Immature Granulocytes Absolute 0.18 #; Lymphocytes # 0.5 10*3/uL (1.4-4.0); Lymphocytes % 9.5 % (21.2-54.2); Mean Corpuscular Volume 90.5 FL (87-102); Mean Platelet Volume 11.7 FL (9.6-12.0); Monocytes % 12.4 % (1.7-12.7); Neutrophils % 73.8 % (38.7-73.9); Red Cell Distribution Width 15.1 % (9.3-17.3); White Blood Count 5.2 T/CUMM (4-12)
[2020-08-01 05:53] LABS: Hemoglobin 10.1 GM/DL (14.0-18.0); Platelet Count 40 T/CUMM (130-400); Red Blood Count 3.28 MC/CUMM (3.8-5.5)
[2020-08-01 05:55] LABS: INR 1.3; PT Patient Result 13.6 SECS (9.8-11.9)
[2020-08-01 06:01] LABS: Calcium 7.4 MG/DL (8.5-10.1); Osmolality,Calculated 275.7 MOS/KG (273-304)
[2020-08-01 06:04] LABS: Albumin 1.5 G/DL (3.4-5.0); Bilirubin,Total 4.9 MG/DL (0.2-1.0); Calcium 7.4 MG/DL (8.5-10.1); Osmolality,Calculated 275.7 MOS/KG (273-304); Total Protein 4.1 G/DL (6.4-8.3)
[2020-08-01 06:06] LABS: Band Neutrophils 1 % (0-10); Lymphocytes 4 % (20-55); Platelet Estimate Decreased; Segmented Neutrophils 88 % (50-85); Total Cells Counted 100
[2020-08-01] MEDS: INSULIN LISPRO 100 UNIT/ML SUBCUT SCH ×4 (07:18→20:21)
[2020-08-01] MEDS: PANTOPRAZOLE 40 MG VIAL IV SCH (08:39)
[2020-08-01] MEDS: PHYTONADIONE INJ 5 MG in SODIUM CHLORIDE 0.9% 50 ML IV SCH (08:39)
[2020-08-01] MEDS: METOPROLOL TARTRATE 25 MG TABLET PO SCH ×2 (08:40→20:18)
[2020-08-01] MEDS: MEROPENEM 500 MG in SODIUM CHLORIDE 0.9% 100 ML IV SCH ×2 (08:40→20:18)
[2020-08-01] MEDS: MENTHOL/ZINC OXIDE OINT 71 GM JAR TOP SCH ×2 (08:40→20:21)
[2020-08-01] MEDS: CHOLESTYRAMINE 4 GM PACK PO SCH ×2 (08:40→20:18)
[2020-08-01] MEDS: RIFAMPIN INJ 600 MG in SODIUM CHLORIDE 0.9% 100 ML IV SCH (16:13)
[2020-08-02] MEDS: DEXT 5% NACL 0.45% KCL 20 MEQ 20 MEQ/1,000 ML BAG IV SCH ×3 (02:03→23:29)
[2020-08-02 06:00] LABS: Basophils % 0.2 % (0.0-0.8); Eosinophils % 0.4 % (0.00-10.9); Hematocrit 30.2 VOL% (42.0-52.0); Hemoglobin 10.2 GM/DL (14.0-18.0); Immature Granulocytes Absolute 0.11 #; Lymphocytes # 0.5 10*3/uL (1.4-4.0); Lymphocytes % 8.9 % (21.2-54.2); Mean Corpuscular HGB Conc 33.8 GM/DL (32-36); Mean Corpuscular Volume 91.2 FL (87-102); Mean Platelet Volume 11.7 FL (9.6-12.0); Monocytes % 9.1 % (1.7-12.7); Neutrophils % 79.4 % (38.7-73.9); Red Blood Count 3.31 MC/CUMM (3.8-5.5); Red Cell Distribution Width 15.2 % (9.3-17.3); White Blood Count 5.5 T/CUMM (4-12)
[2020-08-02 06:05] LABS: Platelet Count 52 T/CUMM (130-400)
[2020-08-02 06:06] LABS: INR 1.4; PT Patient Result 14.5 SECS (9.8-11.9)
[2020-08-02 06:24] LABS: Hypochromasia 1+; Lymphocytes 5 % (20-55); Microcytosis 1+; Ovalocytes Slight; Platelet Estimate Decreased; Segmented Neutrophils 86 % (50-85); Total Cells Counted 100
[2020-08-02 06:28] LABS: Albumin 1.4 G/DL (3.4-5.0); Bilirubin,Total 4.7 MG/DL (0.2-1.0); Calcium 7.1 MG/DL (8.5-10.1); Osmolality,Calculated 274.7 MOS/KG (273-304); Total Protein 4.2 G/DL (6.4-8.3)
[2020-08-02] MEDS: INSULIN LISPRO 100 UNIT/ML SUBCUT SCH ×4 (08:22→22:13)
[2020-08-02] MEDS: PANTOPRAZOLE 40 MG VIAL IV SCH (08:29)
[2020-08-02] MEDS: CHOLESTYRAMINE 4 GM PACK PO SCH ×2 (08:29→21:17)
[2020-08-02] MEDS: METOPROLOL TARTRATE 25 MG TABLET PO SCH ×2 (08:29→21:18)
[2020-08-02] MEDS: MENTHOL/ZINC OXIDE OINT 71 GM JAR TOP SCH ×2 (08:33→22:13)
[2020-08-02] MEDS: BENZONATATE 100 MG CAPSULE PO PRN ×2 (12:30→21:18)
[2020-08-02] MEDS: VANCOMYCIN INJ 500 MG in SODIUM CHLORIDE 0.9% 100 ML IV SCH ×3 (12:31→23:30)
[2020-08-03 05:49] LABS: Basophils % 0.3 % (0.0-0.8); Eosinophils # 0.1 10*3/uL (0.0-0.87); Eosinophils % 0.9 % (0.00-10.9); Hemoglobin 9.9 GM/DL (14.0-18.0); Immature Granulocytes % 1.3 %; Immature Granulocytes Absolute 0.09 #; Lymphocytes # 0.5 10*3/uL (1.4-4.0); Lymphocytes % 7.6 % (21.2-54.2); Mean Corpuscular HGB Conc 34.1 GM/DL (32-36); Mean Corpuscular Volume 91.2 FL (87-102); Mean Platelet Volume 11.4 FL (9.6-12.0); Monocytes % 11.1 % (1.7-12.7); Neutrophils % 78.8 % (38.7-73.9); Red Blood Count 3.18 MC/CUMM (3.8-5.5); Red Cell Distribution Width 15.4 % (9.3-17.3); White Blood Count 6.9 T/CUMM (4-12)
[2020-08-03 05:50] LABS: Platelet Count 70 T/CUMM (130-400)
[2020-08-03 05:51] LABS: INR 1.4; PT Patient Result 14.6 SECS (9.8-11.9)
[2020-08-03 06:03] LABS: Calcium 7.6 MG/DL (8.5-10.1); Osmolality,Calculated 269.1 MOS/KG (273-304)
[2020-08-03 06:10] LABS: Albumin 1.4 G/DL (3.4-5.0); Bilirubin,Total 3.7 MG/DL (0.2-1.0); Calcium 7.3 MG/DL (8.5-10.1); Osmolality,Calculated 272.8 MOS/KG (273-304); Total Protein 4.2 G/DL (6.4-8.3)
[2020-08-03 06:16] LABS: Hypochromasia 1+; Lymphocytes 8 % (20-55); Microcytosis Slight; Platelet Estimate Decreased; Segmented Neutrophils 88 % (50-85); Total Cells Counted 100
[2020-08-03] MEDS: INSULIN LISPRO 100 UNIT/ML SUBCUT SCH ×4 (07:52→21:44)
[2020-08-03 08:25] LABS: Albumin 1.4 G/DL (3.4-5.0); Bilirubin,Total 2.7 MG/DL (0.2-1.0); Calcium 7.1 MG/DL (8.5-10.1); Osmolality,Calculated 272.8 MOS/KG (273-304); Total Protein 3.9 G/DL (6.4-8.3)
[2020-08-03] MEDS ORDERED: CHOLESTYRAMINE 4 GM PACK PO SCH (09:00)
[2020-08-03] MEDS: MAGNESIUM CHLORIDE 64 MG TABLET PO SCH (09:02)
[2020-08-03] MEDS: PANTOPRAZOLE 40 MG VIAL IV SCH (09:02)
[2020-08-03] MEDS: BENZONATATE 100 MG CAPSULE PO PRN ×2 (09:02→21:25)
[2020-08-03] MEDS: METOPROLOL TARTRATE 25 MG TABLET PO SCH ×2 (09:02→21:25)
[2020-08-03] MEDS: MENTHOL/ZINC OXIDE OINT 71 GM JAR TOP SCH ×3 (09:04→21:26)
[2020-08-03] MEDS: VANCOMYCIN INJ 500 MG in SODIUM CHLORIDE 0.9% 100 ML IV SCH ×2 (12:47→23:20)
[2020-08-03] MEDS: DEXT 5% NACL 0.45% KCL 20 MEQ 20 MEQ/1,000 ML BAG IV SCH (15:40)
[2020-08-03] MEDS: CHOLESTYRAMINE 4 GM PACK PO SCH (21:26)
[2020-08-04] MEDS: DEXT 5% NACL 0.45% KCL 20 MEQ 20 MEQ/1,000 ML BAG IV SCH ×3 (02:21→13:33)
[2020-08-04 05:00] LABS: Basophils % 0.5 % (0.0-0.8); Eosinophils # 0.1 10*3/uL (0.0-0.87); Eosinophils % 1.5 % (0.00-10.9); Hematocrit 28.8 VOL% (42.0-52.0); Hemoglobin 9.6 GM/DL (14.0-18.0); Immature Granulocytes % 0.9 %; Immature Granulocytes Absolute 0.06 #; Lymphocytes # 0.7 10*3/uL (1.4-4.0); Lymphocytes % 10.2 % (21.2-54.2); Mean Corpuscular HGB Conc 33.3 GM/DL (32-36); Mean Corpuscular Volume 92.6 FL (87-102); Mean Platelet Volume 11.5 FL (9.6-12.0); Monocytes % 11.5 % (1.7-12.7); Neutrophils % 75.4 % (38.7-73.9); Red Blood Count 3.11 MC/CUMM (3.8-5.5); Red Cell Distribution Width 16.1 % (9.3-17.3); White Blood Count 6.6 T/CUMM (4-12)
[2020-08-04 05:03] LABS: Platelet Count 86 T/CUMM (130-400)
[2020-08-04 05:05] LABS: INR 1.3; PT Patient Result 14.1 SECS (9.8-11.9)
[2020-08-04 05:23] LABS: Band Neutrophils 1 % (0-10); Lymphocytes 9 % (20-55); Segmented Neutrophils 87 % (50-85); Total Cells Counted 100
[2020-08-04 05:24] LABS: Microcytosis 1+; Polychromasia Slight
[2020-08-04 05:25] LABS: Platelet Estimate Decreased
[2020-08-04 05:28] LABS: Albumin 1.3 G/DL (3.4-5.0); Bilirubin,Total 2.4 MG/DL (0.2-1.0); Calcium 6.9 MG/DL (8.5-10.1); Total Protein 4.2 G/DL (6.4-8.3)
[2020-08-04] MEDS: INSULIN LISPRO 100 UNIT/ML SUBCUT SCH ×4 (08:34→21:06)
[2020-08-04] MEDS: PANTOPRAZOLE 40 MG VIAL IV SCH (08:34)
[2020-08-04] MEDS: CHOLESTYRAMINE 4 GM PACK PO SCH ×2 (08:35→21:06)
[2020-08-04] MEDS: MAGNESIUM CHLORIDE 64 MG TABLET PO SCH (08:37)
[2020-08-04] MEDS: MENTHOL/ZINC OXIDE OINT 71 GM JAR TOP SCH ×2 (11:10→21:06)
[2020-08-04] MEDS: METOPROLOL TARTRATE 25 MG TABLET PO SCH ×2 (13:57→21:05)
[2020-08-04] MEDS: VANCOMYCIN INJ 500 MG in SODIUM CHLORIDE 0.9% 100 ML IV SCH (14:05)
[2020-08-05] MEDS: VANCOMYCIN INJ 500 MG in SODIUM CHLORIDE 0.9% 100 ML IV SCH ×2 (00:23→14:51)
[2020-08-05] MEDS: MYLANTA/LIDO VISC 2:1 300 ML BOTTLE SWISH/SPIT PRN (00:27)
[2020-08-05] MEDS: BENZONATATE 100 MG CAPSULE PO PRN ×2 (01:27→08:51)
[2020-08-05] MEDS: ONDANSETRON 4 MG/2 ML VIAL IV PRN (04:10)
[2020-08-05] MEDS: DEXT 5% NACL 0.45% KCL 20 MEQ 20 MEQ/1,000 ML BAG IV SCH (04:17)
[2020-08-05 07:08] LABS: Basophils % 0.7 % (0.0-0.8); Eosinophils # 0.1 10*3/uL (0.0-0.87); Eosinophils % 2.3 % (0.00-10.9); Hematocrit 26.9 VOL% (42.0-52.0); Hemoglobin 8.9 GM/DL (14.0-18.0); Immature Granulocytes % 0.9 %; Immature Granulocytes Absolute 0.04 #; Lymphocytes # 0.6 10*3/uL (1.4-4.0); Mean Corpuscular HGB Conc 33.1 GM/DL (32-36); Mean Corpuscular Volume 92.8 FL (87-102); Mean Platelet Volume 11.2 FL (9.6-12.0); Monocytes % 13.3 % (1.7-12.7); Neutrophils % 68.8 % (38.7-73.9); Red Cell Distribution Width 17.1 % (9.3-17.3)
[2020-08-05 07:11] LABS: Platelet Count 98 T/CUMM (130-400); White Blood Count 4.4 T/CUMM (4-12)
[2020-08-05 07:14] LABS: INR 1.3; PT Patient Result 14.1 SECS (9.8-11.9)
[2020-08-05 07:31] LABS: Albumin 1.3 G/DL (3.4-5.0); Bilirubin,Total 2.5 MG/DL (0.2-1.0); Calcium 7.3 MG/DL (8.5-10.1); Total Protein 4.2 G/DL (6.4-8.3)
[2020-08-05 07:35] LABS: Band Neutrophils 1 % (0-10); Hypochromasia 1+; Lymphocytes 11 % (20-55); Microcytosis 1+; Platelet Estimate Decreased; Segmented Neutrophils 76 % (50-85); Total Cells Counted 100
[2020-08-05 08:02] LABS: Albumin 1.3 G/DL (3.4-5.0); Bilirubin,Total 2.8 MG/DL (0.2-1.0); Calcium 7.4 MG/DL (8.5-10.1); Osmolality,Calculated 272.8 MOS/KG (273-304); Total Protein 4.2 G/DL (6.4-8.3)
[2020-08-05] MEDS: INSULIN LISPRO 100 UNIT/ML SUBCUT SCH ×3 (08:49→20:42)
[2020-08-05] MEDS: PANTOPRAZOLE 40 MG VIAL IV SCH (08:51)
[2020-08-05] MEDS: MAGNESIUM CHLORIDE 64 MG TABLET PO SCH (08:51)
[2020-08-05] MEDS: METOPROLOL TARTRATE 25 MG TABLET PO SCH ×2 (08:52→20:43)
[2020-08-05] MEDS: MENTHOL/ZINC OXIDE OINT 71 GM JAR TOP SCH ×2 (08:52→20:43)
[2020-08-05] MEDS: CHOLESTYRAMINE 4 GM PACK PO SCH ×2 (15:29→20:43)
[2020-08-06 06:06] LABS: Basophils % 0.7 % (0.0-0.8); Eosinophils # 0.2 10*3/uL (0.0-0.87); Eosinophils % 3.7 % (0.00-10.9); Hematocrit 25.3 VOL% (42.0-52.0); Hemoglobin 8.4 GM/DL (14.0-18.0); Immature Granulocytes % 1.2 %; Immature Granulocytes Absolute 0.05 #; Lymphocytes # 0.9 10*3/uL (1.4-4.0); Lymphocytes % 21.4 % (21.2-54.2); Mean Corpuscular HGB Conc 33.2 GM/DL (32-36); Mean Platelet Volume 11.8 FL (9.6-12.0); Platelet Count 114 T/CUMM (130-400); Red Blood Count 2.72 MC/CUMM (3.8-5.5); Red Cell Distribution Width 17.5 % (9.3-17.3); White Blood Count 4.3 T/CUMM (4-12)
[2020-08-06 06:29] LABS: Albumin 1.2 G/DL (3.4-5.0); Calcium 7.2 MG/DL (8.5-10.1); Osmolality,Calculated 271.8 MOS/KG (273-304); Total Protein 4.1 G/DL (6.4-8.3)
[2020-08-06 06:35] LABS: Anisocytosis 3+; Band Neutrophils 6 % (0-10); Burr Cells 2+; Eosinophils 8 % (0-10); Lymphocytes 17 % (20-55); Platelet Estimate Adequate; Polychromasia Slight; Segmented Neutrophils 52 % (50-85); Smudge Cells Few; Total Cells Counted 100
[2020-08-06] MEDS: DEXT 5% NACL 0.45% KCL 20 MEQ 20 MEQ/1,000 ML BAG IV SCH ×3 (09:26→23:07)
[2020-08-06] MEDS: METOPROLOL TARTRATE 25 MG TABLET PO SCH ×2 (09:27→23:06)
[2020-08-06] MEDS: PANTOPRAZOLE 40 MG VIAL IV SCH (09:27)
[2020-08-06] MEDS: MENTHOL/ZINC OXIDE OINT 71 GM JAR TOP SCH ×2 (09:27→23:07)
[2020-08-06] MEDS: CHOLESTYRAMINE 4 GM PACK PO SCH ×2 (09:27→23:09)
[2020-08-06] MEDS: INSULIN LISPRO 100 UNIT/ML SUBCUT SCH ×4 (09:28→23:08)
[2020-08-06] MEDS: MAGNESIUM CHLORIDE 64 MG TABLET PO SCH (09:29)
[2020-08-06] MEDS: ONDANSETRON 4 MG/2 ML VIAL IV PRN (12:15)
[2020-08-06] MEDS: VANCOMYCIN INJ 500 MG in SODIUM CHLORIDE 0.9% 100 ML IV SCH (15:50)
[2020-08-06] MEDS: BENZONATATE 100 MG CAPSULE PO PRN ×2 (16:18→23:06)
[2020-08-07] MEDS: DEXT 5% NACL 0.45% KCL 20 MEQ 20 MEQ/1,000 ML BAG IV SCH ×8 (02:30→21:41)
[2020-08-07 06:49] LABS: Basophils % 0.8 % (0.0-0.8); Eosinophils # 0.1 10*3/uL (0.0-0.87); Hematocrit 24.4 VOL% (42.0-52.0); Hemoglobin 8.2 GM/DL (14.0-18.0); Immature Granulocytes Absolute 0.04 #; Lymphocytes # 0.9 10*3/uL (1.4-4.0); Lymphocytes % 22.3 % (21.2-54.2); Mean Corpuscular HGB Conc 33.6 GM/DL (32-36); Mean Corpuscular Volume 93.1 FL (87-102); Mean Platelet Volume 10.9 FL (9.6-12.0); Monocytes % 18.8 % (1.7-12.7); Neutrophils % 54.1 % (38.7-73.9); Platelet Count 120 T/CUMM (130-400); Red Blood Count 2.62 MC/CUMM (3.8-5.5); Red Cell Distribution Width 17.7 % (9.3-17.3)
[2020-08-07 07:18] LABS: Albumin 1.2 G/DL (3.4-5.0); Bilirubin,Total 2.3 MG/DL (0.2-1.0); Osmolality,Calculated 269.1 MOS/KG (273-304); Total Protein 4.1 G/DL (6.4-8.3)
[2020-08-07] MEDS: INSULIN LISPRO 100 UNIT/ML SUBCUT SCH ×4 (07:23→21:57)
[2020-08-07] MEDS: CHOLESTYRAMINE 4 GM PACK PO SCH ×3 (07:58→21:14)
[2020-08-07] MEDS: PANTOPRAZOLE 40 MG VIAL IV SCH (07:59)
[2020-08-07] MEDS: MAGNESIUM CHLORIDE 64 MG TABLET PO SCH (07:59)
[2020-08-07] MEDS: MENTHOL/ZINC OXIDE OINT 71 GM JAR TOP SCH ×2 (08:04→22:11)
[2020-08-07] MEDS: METOPROLOL TARTRATE 25 MG TABLET PO SCH ×2 (08:07→21:15)
[2020-08-07 08:44] LABS: Eosinophils 2 % (0-10); Lymphocytes 9 % (20-55); Nucleated Red Blood Cells 1 (0-5); Polychromasia Slight; Segmented Neutrophils 81 % (50-85); Total Cells Counted 100
[2020-08-07 08:45] LABS: Anisocytosis 3+; Atypical Lymphocytes Few; Burr Cells Few; Hypochromasia 1+; Macrocytosis 1+; Microcytosis 1+; Platelet Estimate Adequate
[2020-08-07] MEDS: VANCOMYCIN INJ 500 MG in SODIUM CHLORIDE 0.9% 100 ML IV SCH (12:03)
[2020-08-07] MEDS: BENZONATATE 100 MG CAPSULE PO PRN ×3 (12:03→21:14)
[2020-08-08] MEDS: DEXT 5% NACL 0.45% KCL 20 MEQ 20 MEQ/1,000 ML BAG IV SCH ×6 (04:15→23:55)
[2020-08-08 06:15] LABS: Basophils % 0.9 % (0.0-0.8); Eosinophils # 0.3 10*3/uL (0.0-0.87); Eosinophils % 5.5 % (0.00-10.9); Hematocrit 25.2 VOL% (42.0-52.0); Hemoglobin 8.3 GM/DL (14.0-18.0); Immature Granulocytes % 1.1 %; Immature Granulocytes Absolute 0.05 #; Lymphocytes % 22.3 % (21.2-54.2); Mean Corpuscular HGB Conc 32.9 GM/DL (32-36); Mean Platelet Volume 11.2 FL (9.6-12.0); Monocytes % 20.5 % (1.7-12.7); Neutrophils % 49.7 % (38.7-73.9); Platelet Count 123 T/CUMM (130-400); Red Blood Count 2.71 MC/CUMM (3.8-5.5); Red Cell Distribution Width 18.1 % (9.3-17.3); White Blood Count 4.6 T/CUMM (4-12)
[2020-08-08 06:53] LABS: Albumin 1.2 G/DL (3.4-5.0); Bilirubin,Total 2.1 MG/DL (0.2-1.0); Calcium 6.8 MG/DL (8.5-10.1)
[2020-08-08] MEDS: INSULIN LISPRO 100 UNIT/ML SUBCUT SCH ×4 (07:12→21:22)
[2020-08-08] MEDS: MAGNESIUM SULF RIDER 2 GM in PREMIX 1 EACH IV PRN (08:04)
[2020-08-08] MEDS: CHOLESTYRAMINE 4 GM PACK PO SCH ×2 (08:07→21:22)
[2020-08-08] MEDS: PANTOPRAZOLE 40 MG VIAL IV SCH (08:07)
[2020-08-08] MEDS: BENZONATATE 100 MG CAPSULE PO PRN ×3 (08:08→21:22)
[2020-08-08] MEDS: MAGNESIUM CHLORIDE 64 MG TABLET PO SCH (08:08)
[2020-08-08] MEDS: MENTHOL/ZINC OXIDE OINT 71 GM JAR TOP SCH ×2 (08:09→21:26)
[2020-08-08] MEDS: METOPROLOL TARTRATE 25 MG TABLET PO SCH ×2 (08:10→21:22)
[2020-08-08] MEDS: POTASSIUM CHLORIDE RIDER 10 MEQ in PREMIX 1 EACH IV PRN ×2 (11:14→12:38)
[2020-08-08 12:56] LABS: Band Neutrophils 2 % (0-10); Eosinophils 2 % (0-10); Lymphocytes 12 % (20-55); Plasma Cells 1; Segmented Neutrophils 71 % (50-85); Total Cells Counted 99
[2020-08-08 12:57] LABS: Platelet Estimate Adequate; Polychromasia Slight
[2020-08-08 13:25] LABS: INR 1.4; PT Patient Result 15.1 SECS (9.8-11.9)
[2020-08-08] MEDS: VANCOMYCIN INJ 500 MG in SODIUM CHLORIDE 0.9% 100 ML IV SCH (14:02)
[2020-08-09] MEDS: DEXT 5% NACL 0.45% KCL 20 MEQ 20 MEQ/1,000 ML BAG IV SCH ×4 (05:53→20:25)
[2020-08-09 06:56] LABS: Basophils % 0.9 % (0.0-0.8); Eosinophils # 0.3 10*3/uL (0.0-0.87); Eosinophils % 6.8 % (0.00-10.9); Hematocrit 25.9 VOL% (42.0-52.0); Hemoglobin 8.5 GM/DL (14.0-18.0); Immature Granulocytes % 1.6 %; Immature Granulocytes Absolute 0.07 #; Lymphocytes # 0.8 10*3/uL (1.4-4.0); Lymphocytes % 17.9 % (21.2-54.2); Mean Corpuscular HGB Conc 32.8 GM/DL (32-36); Mean Corpuscular Volume 92.5 FL (87-102); Mean Platelet Volume 10.9 FL (9.6-12.0); Monocytes % 19.3 % (1.7-12.7); Neutrophils % 53.5 % (38.7-73.9); Platelet Count 117 T/CUMM (130-400); Red Cell Distribution Width 17.9 % (9.3-17.3); White Blood Count 4.4 T/CUMM (4-12)
[2020-08-09 07:16] LABS: Albumin 1.1 G/DL (3.4-5.0); Bilirubin,Total 1.6 MG/DL (0.2-1.0); Calcium 6.9 MG/DL (8.5-10.1); Osmolality,Calculated 262.5 MOS/KG (273-304); Total Protein 4.1 G/DL (6.4-8.3)
[2020-08-09 07:22] LABS: Atypical Lymphocytes Few; Band Neutrophils 12 % (0-10); Eosinophils 12 % (0-10); Lymphocytes 9 % (20-55); Platelet Estimate Adequate; Segmented Neutrophils 58 % (50-85); Smudge Cells Few; Total Cells Counted 100
[2020-08-09 07:23] LABS: Anisocytosis 2+; Burr Cells Few; Macrocytosis 1+; Poikilocytosis Slight; Polychromasia Slight
[2020-08-09] MEDS: PANTOPRAZOLE 40 MG VIAL IV SCH (09:04)
[2020-08-09] MEDS: INSULIN LISPRO 100 UNIT/ML SUBCUT SCH ×4 (09:11→20:25)
[2020-08-09] MEDS: MAGNESIUM CHLORIDE 64 MG TABLET PO SCH (09:11)
[2020-08-09] MEDS: CHOLESTYRAMINE 4 GM PACK PO SCH ×2 (09:13→20:12)
[2020-08-09] MEDS: METOPROLOL TARTRATE 25 MG TABLET PO SCH ×2 (09:15→20:12)
[2020-08-09 09:26] LABS: Albumin 1.2 G/DL (3.4-5.0); Bilirubin,Total 1.5 MG/DL (0.2-1.0); Calcium 6.9 MG/DL (8.5-10.1); Total Protein 4.3 G/DL (6.4-8.3)
[2020-08-09] MEDS: MENTHOL/ZINC OXIDE OINT 71 GM JAR TOP SCH ×2 (09:34→20:12)
[2020-08-09] MEDS: MAGNESIUM SULF RIDER 2 GM in PREMIX 1 EACH IV PRN (09:37)
[2020-08-09] MEDS: VANCOMYCIN INJ 500 MG in SODIUM CHLORIDE 0.9% 100 ML IV SCH (13:28)
[2020-08-10] MEDS: DEXT 5% NACL 0.45% KCL 20 MEQ 20 MEQ/1,000 ML BAG IV SCH ×6 (00:18→22:57)
[2020-08-10 05:43] LABS: Basophils # 0.1 10*3/uL (0.0-0.2); Basophils % 0.9 % (0.0-0.8); Eosinophils # 0.4 10*3/uL (0.0-0.87); Eosinophils % 6.4 % (0.00-10.9); Hematocrit 25.7 VOL% (42.0-52.0); Hemoglobin 8.5 GM/DL (14.0-18.0); Immature Granulocytes % 1.9 %; Immature Granulocytes Absolute 0.11 #; Mean Corpuscular HGB Conc 33.1 GM/DL (32-36); Mean Corpuscular Volume 92.1 FL (87-102); Mean Platelet Volume 10.9 FL (9.6-12.0); Monocytes % 15.7 % (1.7-12.7); Neutrophils % 57.1 % (38.7-73.9); Platelet Count 124 T/CUMM (130-400); Red Blood Count 2.79 MC/CUMM (3.8-5.5); Red Cell Distribution Width 17.5 % (9.3-17.3); White Blood Count 5.8 T/CUMM (4-12)
[2020-08-10 06:07] LABS: Band Neutrophils 1 % (0-10); Eosinophils 10 % (0-10); Lymphocytes 13 % (20-55); Segmented Neutrophils 60 % (50-85); Total Cells Counted 100
[2020-08-10 06:08] LABS: Microcytosis Slight; Ovalocytes Slight; Platelet Estimate Normal
[2020-08-10 06:09] LABS: Burr Cells Slight
[2020-08-10 06:20] LABS: Albumin 0.8 G/DL (3.4-5.0); Osmolality,Calculated 262.5 MOS/KG (273-304); Total Protein 4.1 G/DL (6.4-8.3)
[2020-08-10] MEDS: MAGNESIUM CHLORIDE 64 MG TABLET PO SCH (08:21)
[2020-08-10] MEDS: METOPROLOL TARTRATE 25 MG TABLET PO SCH ×2 (08:21→20:36)
[2020-08-10] MEDS: PANTOPRAZOLE 40 MG VIAL IV SCH (08:21)
[2020-08-10] MEDS: CHOLESTYRAMINE 4 GM PACK PO SCH ×2 (08:21→20:36)
[2020-08-10] MEDS: MENTHOL/ZINC OXIDE OINT 71 GM JAR TOP SCH ×2 (08:21→20:36)
[2020-08-10] MEDS: INSULIN LISPRO 100 UNIT/ML SUBCUT SCH ×4 (08:38→20:39)
[2020-08-10] MEDS ORDERED: PROMETHAZINE INJ 25 MG in SODIUM CHLORIDE 0.9% 50 ML IV PRN (11:55)
[2020-08-10] MEDS ORDERED: ALUMINUM/MAGNES/SIMETH MAX STR 30 ML UDCUP PO PRN (11:55)
[2020-08-10] MEDS ORDERED: chlorproMAZINE INJ 50 MG in SODIUM CHLORIDE 0.9% 100 ML IV PRN (11:55)
[2020-08-10] MEDS ORDERED: guaiFENesin 200 MG/10 ML UDCUP PO PRN (11:55)
[2020-08-10] MEDS ORDERED: LACTULOSE 20 GM/30 ML UDCUP PO PRN (11:55)
[2020-08-10] MEDS ORDERED: MYLANTA/LIDO VISC 2:1 300 ML BOTTLE SWISH/SWAL PRN (11:55)
[2020-08-10] MEDS ORDERED: chlorproMAZINE INJ 25 MG in SODIUM CHLORIDE 0.9% 100 ML IV PRN (11:55)
[2020-08-10] MEDS ORDERED: MYLANTA/LIDO VISC 2:1 300 ML BOTTLE SWISH/SPIT PRN (11:55)
[2020-08-10] MEDS ORDERED: ONDANSETRON 4 MG/2 ML VIAL IV PRN (11:55)
[2020-08-10] MEDS ORDERED: LOPERAMIDE 2 MG CAPSULE PO PRN (11:55)
[2020-08-10] MEDS ORDERED: traMADol 50 MG TABLET PO PRN (11:55)
[2020-08-10] MEDS ORDERED: MAGNESIUM HYDROXIDE SUSP 30 ML UDCUP PO PRN (11:55)
[2020-08-10] MEDS: VANCOMYCIN INJ 500 MG in SODIUM CHLORIDE 0.9% 100 ML IV SCH (12:48)
[2020-08-11] MEDS: DEXT 5% NACL 0.45% KCL 20 MEQ 20 MEQ/1,000 ML BAG IV SCH ×5 (03:29→19:10)
[2020-08-11 06:43] LABS: Basophils % 0.6 % (0.0-0.8); Eosinophils # 0.4 10*3/uL (0.0-0.87); Eosinophils % 5.7 % (0.00-10.9); Hematocrit 26.5 VOL% (42.0-52.0); Hemoglobin 8.7 GM/DL (14.0-18.0); Immature Granulocytes % 1.9 %; Immature Granulocytes Absolute 0.12 #; Lymphocytes # 1.1 10*3/uL (1.4-4.0); Mean Corpuscular HGB Conc 32.8 GM/DL (32-36); Mean Platelet Volume 10.7 FL (9.6-12.0); Monocytes % 12.9 % (1.7-12.7); Neutrophils % 61.9 % (38.7-73.9); Platelet Count 128 T/CUMM (130-400); Red Blood Count 2.88 MC/CUMM (3.8-5.5); Red Cell Distribution Width 17.6 % (9.3-17.3); White Blood Count 6.4 T/CUMM (4-12)
[2020-08-11 07:01] LABS: Albumin 1.1 G/DL (3.4-5.0); Bilirubin,Total 1.5 MG/DL (0.2-1.0); Osmolality,Calculated 265.2 MOS/KG (273-304); Total Protein 4.1 G/DL (6.4-8.3)
[2020-08-11 07:23] LABS: Band Neutrophils 2 % (0-10); Eosinophils 5 % (0-10); Hypochromasia 1+; Lymphocytes 13 % (20-55); Microcytosis Slight; Platelet Estimate Normal; Segmented Neutrophils 66 % (50-85); Total Cells Counted 100
[2020-08-11 07:24] LABS: Atypical Lymphocytes Few
[2020-08-11] MEDS: INSULIN LISPRO 100 UNIT/ML SUBCUT SCH ×4 (08:01→22:13)
[2020-08-11] MEDS: PANTOPRAZOLE 40 MG VIAL IV SCH (09:34)
[2020-08-11] MEDS: MENTHOL/ZINC OXIDE OINT 71 GM JAR TOP SCH ×2 (09:34→21:08)
[2020-08-11] MEDS: MAGNESIUM CHLORIDE 64 MG TABLET PO SCH (09:38)
[2020-08-11] MEDS: CHOLESTYRAMINE 4 GM PACK PO SCH ×2 (09:38→21:07)
[2020-08-11] MEDS: METOPROLOL TARTRATE 25 MG TABLET PO SCH ×2 (09:39→21:07)
[2020-08-11] MEDS: LOPERAMIDE 2 MG CAPSULE PO PRN (09:39)
[2020-08-11] MEDS: VANCOMYCIN INJ 500 MG in SODIUM CHLORIDE 0.9% 100 ML IV SCH (13:42)
[2020-08-12] MEDS: DEXT 5% NACL 0.45% KCL 20 MEQ 20 MEQ/1,000 ML BAG IV SCH ×4 (00:16→19:50)
[2020-08-12 05:43] LABS: Basophils # 0.1 10*3/uL (0.0-0.2); Eosinophils # 0.4 10*3/uL (0.0-0.87); Eosinophils % 6.3 % (0.00-10.9); Hematocrit 25.9 VOL% (42.0-52.0); Hemoglobin 8.6 GM/DL (14.0-18.0); Immature Granulocytes % 2.1 %; Immature Granulocytes Absolute 0.13 #; Lymphocytes # 1.1 10*3/uL (1.4-4.0); Lymphocytes % 17.5 % (21.2-54.2); Mean Corpuscular HGB Conc 33.2 GM/DL (32-36); Mean Corpuscular Volume 93.8 FL (87-102); Mean Platelet Volume 10.7 FL (9.6-12.0); Monocytes % 12.5 % (1.7-12.7); Neutrophils % 60.6 % (38.7-73.9); Platelet Count 123 T/CUMM (130-400); Red Blood Count 2.76 MC/CUMM (3.8-5.5); Red Cell Distribution Width 17.4 % (9.3-17.3); White Blood Count 6.2 T/CUMM (4-12)
[2020-08-12 06:06] LABS: Calcium 6.7 MG/DL (8.5-10.1); Osmolality,Calculated 265.2 MOS/KG (273-304)
[2020-08-12 06:07] LABS: Eosinophils 8 % (0-10); Lymphocytes 12 % (20-55); Segmented Neutrophils 75 % (50-85); Total Cells Counted 100
[2020-08-12 06:08] LABS: Burr Cells Slight; Hypochromasia 1+; Microcytosis Slight; Ovalocytes Slight
[2020-08-12] MEDS: INSULIN LISPRO 100 UNIT/ML SUBCUT SCH ×4 (07:18→21:11)
[2020-08-12] MEDS ORDERED: MAGNESIUM SULF RIDER 4 GM in PREMIX 1 EACH IV ONE (08:37)
[2020-08-12] MEDS: MAGNESIUM CHLORIDE 64 MG TABLET PO SCH (08:46)
[2020-08-12] MEDS: CHOLESTYRAMINE 4 GM PACK PO SCH ×2 (08:46→21:12)
[2020-08-12] MEDS: METOPROLOL TARTRATE 25 MG TABLET PO SCH ×2 (08:46→21:12)
[2020-08-12] MEDS: PANTOPRAZOLE 40 MG VIAL IV SCH (08:47)
[2020-08-12] MEDS: MENTHOL/ZINC OXIDE OINT 71 GM JAR TOP SCH ×2 (08:49→21:12)
[2020-08-12 09:21] LABS: Albumin 1.1 G/DL (3.4-5.0); Bilirubin,Total 1.6 MG/DL (0.2-1.0); Calcium 6.9 MG/DL (8.5-10.1); Osmolality,Calculated 266.2 MOS/KG (273-304); Total Protein 4.2 G/DL (6.4-8.3)
[2020-08-12] MEDS: BACITRACIN OINT 0.9 GM PACK TOP SCH ×2 (11:00→21:20)
[2020-08-12] MEDS: VANCOMYCIN INJ 500 MG in SODIUM CHLORIDE 0.9% 100 ML IV SCH (13:50)
[2020-08-12] MEDS: MAGNESIUM SULF RIDER 2 GM in PREMIX 1 EACH IV PRN (19:52)
[2020-08-13] MEDS: DEXT 5% NACL 0.45% KCL 20 MEQ 20 MEQ/1,000 ML BAG IV SCH ×5 (02:38→19:42)
[2020-08-13 05:52] LABS: Basophils # 0.1 10*3/uL (0.0-0.2); Basophils % 0.8 % (0.0-0.8); Eosinophils # 0.4 10*3/uL (0.0-0.87); Eosinophils % 5.3 % (0.00-10.9); Hematocrit 24.9 VOL% (42.0-52.0); Hemoglobin 8.2 GM/DL (14.0-18.0); Immature Granulocytes % 1.7 %; Immature Granulocytes Absolute 0.12 #; Lymphocytes # 1.1 10*3/uL (1.4-4.0); Lymphocytes % 15.9 % (21.2-54.2); Mean Corpuscular HGB Conc 32.9 GM/DL (32-36); Mean Corpuscular Volume 93.3 FL (87-102); Mean Platelet Volume 10.5 FL (9.6-12.0); Monocytes % 11.9 % (1.7-12.7); Neutrophils % 64.4 % (38.7-73.9); Platelet Count 113 T/CUMM (130-400); Red Blood Count 2.67 MC/CUMM (3.8-5.5); Red Cell Distribution Width 17.3 % (9.3-17.3); White Blood Count 7.2 T/CUMM (4-12)
[2020-08-13 06:10] LABS: Bilirubin,Total 1.6 MG/DL (0.2-1.0); Calcium 6.9 MG/DL (8.5-10.1); Osmolality,Calculated 267.1 MOS/KG (273-304); Total Protein 3.9 G/DL (6.4-8.3)
[2020-08-13 06:37] LABS: Band Neutrophils 1 % (0-10); Eosinophils 7 % (0-10); Lymphocytes 7 % (20-55); Segmented Neutrophils 76 % (50-85); Total Cells Counted 100
[2020-08-13 06:38] LABS: Hypochromasia 1+; Microcytosis 1+
[2020-08-13 06:39] LABS: Acanthocytes Few; Platelet Estimate Decreased
[2020-08-13] MEDS: INSULIN LISPRO 100 UNIT/ML SUBCUT SCH ×2 (08:16→12:47)
[2020-08-13] MEDS: BACITRACIN OINT 0.9 GM PACK TOP SCH ×2 (08:18→21:08)
[2020-08-13] MEDS: PANTOPRAZOLE 40 MG VIAL IV SCH (08:18)
[2020-08-13] MEDS: MENTHOL/ZINC OXIDE OINT 71 GM JAR TOP SCH ×2 (08:19→21:09)
[2020-08-13] MEDS: MAGNESIUM CHLORIDE 64 MG TABLET PO SCH (08:19)
[2020-08-13] MEDS: CHOLESTYRAMINE 4 GM PACK PO SCH ×2 (08:20→21:08)
[2020-08-13] MEDS: METOPROLOL TARTRATE 25 MG TABLET PO SCH ×2 (08:20→21:08)
[2020-08-13] MEDS: VANCOMYCIN INJ 500 MG in SODIUM CHLORIDE 0.9% 100 ML IV SCH (14:29)
[2020-08-14] MEDS: DEXT 5% NACL 0.45% KCL 20 MEQ 20 MEQ/1,000 ML BAG IV SCH ×5 (00:50→20:35)
[2020-08-14 05:38] LABS: Basophils # 0.1 10*3/uL (0.0-0.2); Basophils % 0.6 % (0.0-0.8); Eosinophils # 0.3 10*3/uL (0.0-0.87); Eosinophils % 4.1 % (0.00-10.9); Hematocrit 25.5 VOL% (42.0-52.0); Hemoglobin 8.4 GM/DL (14.0-18.0); Immature Granulocytes % 1.4 %; Immature Granulocytes Absolute 0.11 #; Lymphocytes # 1.4 10*3/uL (1.4-4.0); Lymphocytes % 17.9 % (21.2-54.2); Mean Corpuscular HGB Conc 32.9 GM/DL (32-36); Mean Corpuscular Volume 90.4 FL (87-102); Mean Platelet Volume 10.8 FL (9.6-12.0); Monocytes % 10.4 % (1.7-12.7); Neutrophils % 65.6 % (38.7-73.9); Platelet Count 114 T/CUMM (130-400); Red Blood Count 2.82 MC/CUMM (3.8-5.5); White Blood Count 7.9 T/CUMM (4-12)
[2020-08-14 06:04] LABS: Acanthocytes Few; Eosinophils 5 % (0-10); Hypochromasia 1+; Lymphocytes 15 % (20-55); Ovalocytes Slight; Platelet Estimate Decreased; Segmented Neutrophils 75 % (50-85); Total Cells Counted 100
[2020-08-14 06:05] LABS: Albumin 1.1 G/DL (3.4-5.0); Bilirubin,Total 1.3 MG/DL (0.2-1.0); Calcium 6.8 MG/DL (8.5-10.1); Microcytosis Slight
[2020-08-14] MEDS: BACITRACIN OINT 0.9 GM PACK TOP SCH ×2 (08:23→20:33)
[2020-08-14] MEDS: MENTHOL/ZINC OXIDE OINT 71 GM JAR TOP SCH ×2 (08:24→20:33)
[2020-08-14] MEDS: MAGNESIUM CHLORIDE 64 MG TABLET PO SCH (08:24)
[2020-08-14] MEDS: METOPROLOL TARTRATE 25 MG TABLET PO SCH ×2 (08:24→20:32)
[2020-08-14] MEDS: PANTOPRAZOLE 40 MG VIAL IV SCH (08:24)
[2020-08-14] MEDS: CHOLESTYRAMINE 4 GM PACK PO SCH ×2 (08:25→20:32)
[2020-08-14] MEDS: cefTRIAXone 1,000 MG in SYRINGE 1 EACH IV SCH (11:23)
[2020-08-14] MEDS: VANCOMYCIN INJ 500 MG in SODIUM CHLORIDE 0.9% 100 ML IV SCH (12:52)
[2020-08-14] MEDS: ALPRAZolam 0.25 MG TABLET PO PRN (20:32)
[2020-08-14] MEDS: diphenhydrAMINE CAP 25 MG CAPSULE PO PRN (20:32)
[2020-08-15 06:27] LABS: Basophils # 0.1 10*3/uL (0.0-0.2); Basophils % 0.6 % (0.0-0.8); Eosinophils # 0.3 10*3/uL (0.0-0.87); Eosinophils % 4.4 % (0.00-10.9); Hematocrit 25.5 VOL% (42.0-52.0); Hemoglobin 8.4 GM/DL (14.0-18.0); Immature Granulocytes % 1.8 %; Immature Granulocytes Absolute 0.14 #; Lymphocytes # 1.4 10*3/uL (1.4-4.0); Lymphocytes % 18.5 % (21.2-54.2); Mean Corpuscular HGB Conc 32.9 GM/DL (32-36); Mean Corpuscular Volume 92.1 FL (87-102); Mean Platelet Volume 10.8 FL (9.6-12.0); Neutrophils % 64.7 % (38.7-73.9); Platelet Count 100 T/CUMM (130-400); Red Blood Count 2.77 MC/CUMM (3.8-5.5); White Blood Count 7.7 T/CUMM (4-12)
[2020-08-15 06:45] LABS: Albumin 0.9 G/DL (3.4-5.0); Bilirubin,Total 1.2 MG/DL (0.2-1.0); Total Protein 3.8 G/DL (6.4-8.3)
[2020-08-15] MEDS: CHOLESTYRAMINE 4 GM PACK PO SCH ×2 (08:24→21:08)
[2020-08-15] MEDS: PANTOPRAZOLE 40 MG VIAL IV SCH (08:24)
[2020-08-15] MEDS: METOPROLOL TARTRATE 25 MG TABLET PO SCH ×2 (08:24→21:09)
[2020-08-15] MEDS: BACITRACIN OINT 0.9 GM PACK TOP SCH ×2 (08:24→21:08)
[2020-08-15] MEDS: MAGNESIUM CHLORIDE 64 MG TABLET PO SCH (08:24)
[2020-08-15] MEDS: DEXT 5% NACL 0.45% KCL 20 MEQ 20 MEQ/1,000 ML BAG IV SCH ×2 (08:25→12:49)
[2020-08-15] MEDS: POTASSIUM CHLORIDE RIDER 10 MEQ in PREMIX 1 EACH IV PRN ×3 (08:25→16:59)
[2020-08-15] MEDS: MENTHOL/ZINC OXIDE OINT 71 GM JAR TOP SCH ×2 (08:25→21:09)
[2020-08-15] MEDS: cefTRIAXone 1,000 MG in SYRINGE 1 EACH IV SCH (12:51)
[2020-08-15] MEDS: VANCOMYCIN INJ 500 MG in SODIUM CHLORIDE 0.9% 100 ML IV SCH (12:53)
[2020-08-15 19:27] LABS: Bacteria,Urine Occasional /HPF (Few); Bilirubin,Urine Negative (Negative); Blood, Urine Negative (Negative); Glucose,Urine (UA) 50 mg/dL (Negative); Ketones,Urine Negative (Negative); Mucus,Urine Occasional /LPF (Occasional); Nitrite,Urine Negative (Negative); Protein,Urine Negative; RBC,Urine <1 /HPF (0-4); Squamous Epithelial Cell,Urine Occasional /HPF (0-10); Urine Appearance CLEAR (Clear); Urine Color Yellow (Yellow); Urine Specific Gravity 1.009 (1.001-1.035); Urine Urobilinogen < 2.0 EU/DL (0.2-1.0); WBC,Urine 2 /HPF (0-6)
[2020-08-15] MEDS: TEMAZEPAM 7.5 MG CAPSULE PO PRN (21:08)
[2020-08-15] MEDS: ALPRAZolam 0.25 MG TABLET PO PRN (21:08)
[2020-08-16 05:25] LABS: Basophils # 0.1 10*3/uL (0.0-0.2); Basophils % 0.8 % (0.0-0.8); Eosinophils # 0.3 10*3/uL (0.0-0.87); Eosinophils % 3.9 % (0.00-10.9); Hemoglobin 8.1 GM/DL (14.0-18.0); Immature Granulocytes % 1.2 %; Immature Granulocytes Absolute 0.08 #; Lymphocytes # 1.5 10*3/uL (1.4-4.0); Lymphocytes % 22.6 % (21.2-54.2); Mean Corpuscular HGB Conc 33.8 GM/DL (32-36); Mean Corpuscular Volume 91.3 FL (87-102); Mean Platelet Volume 10.7 FL (9.6-12.0); Neutrophils % 62.5 % (38.7-73.9); Platelet Count 90 T/CUMM (130-400); Red Blood Count 2.63 MC/CUMM (3.8-5.5); Red Cell Distribution Width 17.2 % (9.3-17.3); White Blood Count 6.6 T/CUMM (4-12)
[2020-08-16 05:39] LABS: Bilirubin,Total 0.9 MG/DL (0.2-1.0); Calcium 6.8 MG/DL (8.5-10.1); Total Protein 3.9 G/DL (6.4-8.3)
[2020-08-16 05:55] LABS: Eosinophils 2 % (0-10); Hypochromasia 1+; Lymphocytes 18 % (20-55); Microcytosis 1+; Ovalocytes Slight; Platelet Estimate Decreased; Segmented Neutrophils 75 % (50-85); Total Cells Counted 100
[2020-08-16] MEDS: CHOLESTYRAMINE 4 GM PACK PO SCH ×2 (08:36→21:01)
[2020-08-16] MEDS: PANTOPRAZOLE 40 MG VIAL IV SCH (08:36)
[2020-08-16] MEDS: METOPROLOL TARTRATE 25 MG TABLET PO SCH ×2 (08:37→21:01)
[2020-08-16] MEDS: MAGNESIUM CHLORIDE 64 MG TABLET PO SCH (08:37)
[2020-08-16] MEDS: MENTHOL/ZINC OXIDE OINT 71 GM JAR TOP SCH ×2 (08:38→21:01)
[2020-08-16] MEDS: BACITRACIN OINT 0.9 GM PACK TOP SCH ×2 (08:38→21:01)
[2020-08-16] MEDS: POTASSIUM CHLORIDE RIDER 10 MEQ in PREMIX 1 EACH IV PRN ×3 (08:39→11:09)
[2020-08-16] MEDS ORDERED: SODIUM CHLORIDE 0.9% 1,000 ML IV PRN (08:46)
[2020-08-16] MEDS: MAGNESIUM SULF RIDER 2 GM in PREMIX 1 EACH IV PRN (12:38)
[2020-08-16] MEDS: DEXT 5% NACL 0.45% KCL 20 MEQ 20 MEQ/1,000 ML BAG IV SCH (23:11)
[2020-08-17 07:03] LABS: Bilirubin,Total 1.7 MG/DL (0.2-1.0); Calcium 7.1 MG/DL (8.5-10.1)
[2020-08-17 07:24] LABS: Basophils # 0.1 10*3/uL (0.0-0.2); Basophils % 0.6 % (0.0-0.8); Eosinophils # 0.2 10*3/uL (0.0-0.87); Eosinophils % 2.3 % (0.00-10.9); Hematocrit 31.2 VOL% (42.0-52.0); Immature Granulocytes % 0.8 %; Immature Granulocytes Absolute 0.07 #; Lymphocytes # 1.7 10*3/uL (1.4-4.0); Lymphocytes % 20.4 % (21.2-54.2); Mean Corpuscular HGB Conc 34.3 GM/DL (32-36); Mean Corpuscular Volume 89.1 FL (87-102); Mean Platelet Volume 10.6 FL (9.6-12.0); Monocytes % 9.1 % (1.7-12.7); Neutrophils % 66.8 % (38.7-73.9); Platelet Count 100 T/CUMM (130-400); White Blood Count 8.3 T/CUMM (4-12)
[2020-08-17 07:29] LABS: Hemoglobin 10.7 GM/DL (14.0-18.0)
[2020-08-17] MEDS: METOPROLOL TARTRATE 25 MG TABLET PO SCH ×2 (08:26→21:03)
[2020-08-17] MEDS: MAGNESIUM CHLORIDE 64 MG TABLET PO SCH (08:27)
[2020-08-17] MEDS: PANTOPRAZOLE 40 MG VIAL IV SCH (08:28)
[2020-08-17] MEDS: CHOLESTYRAMINE 4 GM PACK PO SCH ×2 (08:28→21:09)
[2020-08-17] MEDS: MENTHOL/ZINC OXIDE OINT 71 GM JAR TOP SCH ×2 (10:14→21:03)
[2020-08-17] MEDS: BACITRACIN OINT 0.9 GM PACK TOP SCH ×2 (10:14→21:03)
[2020-08-17] MEDS: DEXT 5% NACL 0.45% KCL 20 MEQ 20 MEQ/1,000 ML BAG IV SCH (18:32)
[2020-08-18 06:26] LABS: Basophils # 0.1 10*3/uL (0.0-0.2); Basophils % 0.8 % (0.0-0.8); Eosinophils # 0.2 10*3/uL (0.0-0.87); Eosinophils % 2.2 % (0.00-10.9); Hematocrit 32.2 VOL% (42.0-52.0); Immature Granulocytes Absolute 0.09 #; Lymphocytes # 2.2 10*3/uL (1.4-4.0); Lymphocytes % 25.6 % (21.2-54.2); Mean Corpuscular HGB Conc 34.2 GM/DL (32-36); Mean Corpuscular Volume 89.2 FL (87-102); Mean Platelet Volume 10.6 FL (9.6-12.0); Monocytes % 8.4 % (1.7-12.7); Red Blood Count 3.61 MC/CUMM (3.8-5.5); Red Cell Distribution Width 16.6 % (9.3-17.3); White Blood Count 8.8 T/CUMM (4-12)
[2020-08-18 06:27] LABS: Platelet Count 94 T/CUMM (130-400)
[2020-08-18 06:36] LABS: Bilirubin,Total 1.5 MG/DL (0.2-1.0); Calcium 7.2 MG/DL (8.5-10.1); Total Protein 4.2 G/DL (6.4-8.3)
[2020-08-18 06:52] LABS: Eosinophils 1 % (0-10); Lymphocytes 5 % (20-55); Platelet Estimate Decreased; Segmented Neutrophils 90 % (50-85); Total Cells Counted 100
[2020-08-18] MEDS: CHOLESTYRAMINE 4 GM PACK PO SCH ×2 (08:15→20:30)
[2020-08-18] MEDS: BACITRACIN OINT 0.9 GM PACK TOP SCH ×2 (08:15→20:30)
[2020-08-18] MEDS: METOPROLOL TARTRATE 25 MG TABLET PO SCH ×2 (08:15→20:30)
[2020-08-18] MEDS: MAGNESIUM CHLORIDE 64 MG TABLET PO SCH (08:15)
[2020-08-18] MEDS: MENTHOL/ZINC OXIDE OINT 71 GM JAR TOP SCH ×2 (08:15→20:30)
[2020-08-18] MEDS: PANTOPRAZOLE 40 MG VIAL IV SCH (08:16)
[2020-08-18] MEDS: DEXT 5% NACL 0.45% KCL 20 MEQ 20 MEQ/1,000 ML BAG IV SCH (15:03)
[2020-08-19 07:44] LABS: Basophils # 0.1 10*3/uL (0.0-0.2); Basophils % 0.6 % (0.0-0.8); Eosinophils # 0.1 10*3/uL (0.0-0.87); Eosinophils % 1.2 % (0.00-10.9); Hematocrit 31.8 VOL% (42.0-52.0); Hemoglobin 10.9 GM/DL (14.0-18.0); Immature Granulocytes % 0.9 %; Immature Granulocytes Absolute 0.09 #; Lymphocytes # 2.4 10*3/uL (1.4-4.0); Mean Corpuscular HGB Conc 34.3 GM/DL (32-36); Mean Corpuscular Volume 89.8 FL (87-102); Mean Platelet Volume 10.1 FL (9.6-12.0); Monocytes % 8.6 % (1.7-12.7); Neutrophils % 64.7 % (38.7-73.9); Platelet Count 101 T/CUMM (130-400); Red Blood Count 3.54 MC/CUMM (3.8-5.5); Red Cell Distribution Width 16.9 % (9.3-17.3); White Blood Count 9.9 T/CUMM (4-12)
[2020-08-19 08:01] LABS: Bilirubin,Total 1.2 MG/DL (0.2-1.0); Calcium 7.2 MG/DL (8.5-10.1); Osmolality,Calculated 268.1 MOS/KG (273-304); Total Protein 4.3 G/DL (6.4-8.3)
[2020-08-19 08:10] LABS: Lymphocytes 15 % (20-55); Platelet Estimate Decreased; Segmented Neutrophils 82 % (50-85); Total Cells Counted 100
[2020-08-19] MEDS: PANTOPRAZOLE 40 MG VIAL IV SCH (08:41)
[2020-08-19] MEDS: MENTHOL/ZINC OXIDE OINT 71 GM JAR TOP SCH ×2 (08:41→21:09)
[2020-08-19] MEDS: CHOLESTYRAMINE 4 GM PACK PO SCH ×2 (08:42→21:08)
[2020-08-19] MEDS: METOPROLOL TARTRATE 25 MG TABLET PO SCH ×2 (08:42→21:09)
[2020-08-19] MEDS: MAGNESIUM CHLORIDE 64 MG TABLET PO SCH (08:42)
[2020-08-19] MEDS: BACITRACIN OINT 0.9 GM PACK TOP SCH ×2 (08:44→21:09)
[2020-08-19] MEDS: DEXT 5% NACL 0.45% KCL 20 MEQ 20 MEQ/1,000 ML BAG IV SCH (13:51)
[2020-08-19] MEDS: ALPRAZolam 0.25 MG TABLET PO PRN (21:08)
[2020-08-19] MEDS: TEMAZEPAM 7.5 MG CAPSULE PO PRN (21:09)
[2020-08-20 04:06] LABS: Basophils # 0.1 10*3/uL (0.0-0.2); Basophils % 0.6 % (0.0-0.8); Eosinophils # 0.1 10*3/uL (0.0-0.87); Eosinophils % 1.4 % (0.00-10.9); Hematocrit 29.7 VOL% (42.0-52.0); Hemoglobin 10.2 GM/DL (14.0-18.0); Immature Granulocytes % 0.7 %; Immature Granulocytes Absolute 0.07 #; Lymphocytes # 2.1 10*3/uL (1.4-4.0); Lymphocytes % 22.4 % (21.2-54.2); Mean Corpuscular HGB Conc 34.3 GM/DL (32-36); Mean Corpuscular Volume 90.3 FL (87-102); Mean Platelet Volume 10.7 FL (9.6-12.0); Monocytes % 8.3 % (1.7-12.7); Neutrophils % 66.6 % (38.7-73.9); Platelet Count 77 T/CUMM (130-400); Red Blood Count 3.29 MC/CUMM (3.8-5.5); Red Cell Distribution Width 16.7 % (9.3-17.3); White Blood Count 9.4 T/CUMM (4-12)
[2020-08-20 04:36] LABS: Calcium 6.9 MG/DL (8.5-10.1); Osmolality,Calculated 266.1 MOS/KG (273-304); Total Protein 4.1 G/DL (6.4-8.3)
[2020-08-20 05:33] LABS: Microcytosis 1+; Polychromasia Slight
[2020-08-20 05:35] LABS: Hypochromasia 1+; Platelet Estimate Decreased
[2020-08-20] MEDS: PANTOPRAZOLE 40 MG VIAL IV SCH (09:38)
[2020-08-20] MEDS: MAGNESIUM CHLORIDE 64 MG TABLET PO SCH (09:38)
[2020-08-20] MEDS: METOPROLOL TARTRATE 25 MG TABLET PO SCH ×2 (09:38→21:57)
[2020-08-20] MEDS: CHOLESTYRAMINE 4 GM PACK PO SCH ×2 (09:39→21:57)
[2020-08-20] MEDS: POTASSIUM CHLORIDE RIDER 20 MEQ in PREMIX 1 EACH IV PRN (09:39)
[2020-08-20] MEDS: BACITRACIN OINT 0.9 GM PACK TOP SCH ×2 (09:46→23:50)
[2020-08-20] MEDS: MENTHOL/ZINC OXIDE OINT 71 GM JAR TOP SCH ×2 (09:46→21:58)
[2020-08-20] MEDS: POTASSIUM CHLORIDE 20 MEQ/15 ML UDCUP PO SCH (09:52)
[2020-08-20] MEDS: DEXT 5% NACL 0.45% KCL 20 MEQ 20 MEQ/1,000 ML BAG IV SCH (19:30)
[2020-08-20] MEDS: TEMAZEPAM 7.5 MG CAPSULE PO PRN (21:57)
[2020-08-21] MEDS: DEXT 5% NACL 0.45% KCL 20 MEQ 20 MEQ/1,000 ML BAG IV SCH (04:58)
[2020-08-21 06:54] LABS: Basophils # 0.1 10*3/uL (0.0-0.2); Basophils % 0.8 % (0.0-0.8); Eosinophils # 0.2 10*3/uL (0.0-0.87); Eosinophils % 2.4 % (0.00-10.9); Hematocrit 29.8 VOL% (42.0-52.0); Hemoglobin 9.9 GM/DL (14.0-18.0); Immature Granulocytes % 0.7 %; Immature Granulocytes Absolute 0.05 #; Lymphocytes # 1.4 10*3/uL (1.4-4.0); Lymphocytes % 20.1 % (21.2-54.2); Mean Corpuscular HGB Conc 33.2 GM/DL (32-36); Mean Corpuscular Volume 91.7 FL (87-102); Mean Platelet Volume 10.6 FL (9.6-12.0); Monocytes % 9.9 % (1.7-12.7); Neutrophils % 66.1 % (38.7-73.9); Platelet Count 69 T/CUMM (130-400); Red Blood Count 3.25 MC/CUMM (3.8-5.5); Red Cell Distribution Width 16.8 % (9.3-17.3); White Blood Count 7.2 T/CUMM (4-12)
[2020-08-21 07:15] LABS: Bilirubin,Total 1.7 MG/DL (0.2-1.0); Osmolality,Calculated 270.8 MOS/KG (273-304); Total Protein 4.1 G/DL (6.4-8.3)
[2020-08-21 07:31] LABS: Anisocytosis 2+; Platelet Estimate Decreased
[2020-08-21 07:32] LABS: Burr Cells 1+; Poikilocytosis Slight
[2020-08-21 07:33] LABS: Macrocytosis Slight; Polychromasia Slight
[2020-08-21] MEDS: MENTHOL/ZINC OXIDE OINT 71 GM JAR TOP SCH ×2 (09:25→21:33)
[2020-08-21] MEDS: CHOLESTYRAMINE 4 GM PACK PO SCH ×2 (09:25→21:33)
[2020-08-21] MEDS: POTASSIUM CHLORIDE RIDER 20 MEQ in PREMIX 1 EACH IV PRN ×2 (09:25→11:27)
[2020-08-21] MEDS: POTASSIUM CHLORIDE 20 MEQ/15 ML UDCUP PO SCH (09:26)
[2020-08-21] MEDS: METOPROLOL TARTRATE 25 MG TABLET PO SCH ×2 (09:26→21:32)
[2020-08-21] MEDS: PANTOPRAZOLE 40 MG VIAL IV SCH (09:26)
[2020-08-21] MEDS: BACITRACIN OINT 0.9 GM PACK TOP SCH ×2 (09:30→21:33)
[2020-08-21] MEDS: MAGNESIUM CHLORIDE 64 MG TABLET PO SCH (09:30)
[2020-08-21] MEDS: TEMAZEPAM 7.5 MG CAPSULE PO PRN (21:32)
[2020-08-22] MEDS: DEXT 5% NACL 0.45% KCL 20 MEQ 20 MEQ/1,000 ML BAG IV SCH ×2 (00:21→22:48)
[2020-08-22 05:24] LABS: Basophils # 0.1 10*3/uL (0.0-0.2); Basophils % 0.9 % (0.0-0.8); Eosinophils # 0.2 10*3/uL (0.0-0.87); Eosinophils % 2.5 % (0.00-10.9); Hematocrit 30.7 VOL% (42.0-52.0); Hemoglobin 10.2 GM/DL (14.0-18.0); Immature Granulocytes % 0.9 %; Immature Granulocytes Absolute 0.06 #; Lymphocytes # 1.7 10*3/uL (1.4-4.0); Lymphocytes % 27.2 % (21.2-54.2); Mean Corpuscular HGB Conc 33.2 GM/DL (32-36); Mean Corpuscular Volume 91.6 FL (87-102); Mean Platelet Volume 10.3 FL (9.6-12.0); Monocytes % 10.9 % (1.7-12.7); Neutrophils % 57.6 % (38.7-73.9); Platelet Count 68 T/CUMM (130-400); Red Blood Count 3.35 MC/CUMM (3.8-5.5); White Blood Count 6.4 T/CUMM (4-12)
[2020-08-22 05:42] LABS: Calcium 7.1 MG/DL (8.5-10.1); Total Protein 4.2 G/DL (6.4-8.3)
[2020-08-22 05:45] LABS: Platelet Estimate Decreased
[2020-08-22 05:46] LABS: Anisocytosis 1+; Burr Cells Few; Macrocytosis Slight
[2020-08-22] MEDS: METOPROLOL TARTRATE 25 MG TABLET PO SCH ×2 (08:49→22:09)
[2020-08-22] MEDS: CHOLESTYRAMINE 4 GM PACK PO SCH ×2 (08:49→22:09)
[2020-08-22] MEDS: POTASSIUM CHLORIDE 20 MEQ/15 ML UDCUP PO SCH (08:49)
[2020-08-22] MEDS: PANTOPRAZOLE 40 MG VIAL IV SCH (08:50)
[2020-08-22] MEDS: MENTHOL/ZINC OXIDE OINT 71 GM JAR TOP SCH ×3 (08:50→22:05)
[2020-08-22] MEDS: BACITRACIN OINT 0.9 GM PACK TOP SCH ×3 (08:50→22:05)
[2020-08-22] MEDS: MAGNESIUM CHLORIDE 64 MG TABLET PO SCH (08:50)
[2020-08-22] MEDS: TEMAZEPAM 7.5 MG CAPSULE PO PRN (22:09)
[2020-08-23 05:40] LABS: Basophils # 0.1 10*3/uL (0.0-0.2); Basophils % 0.8 % (0.0-0.8); Eosinophils # 0.2 10*3/uL (0.0-0.87); Eosinophils % 3.1 % (0.00-10.9); Hematocrit 31.1 VOL% (42.0-52.0); Hemoglobin 10.3 GM/DL (14.0-18.0); Immature Granulocytes % 0.6 %; Immature Granulocytes Absolute 0.04 #; Lymphocytes # 2.1 10*3/uL (1.4-4.0); Lymphocytes % 33.1 % (21.2-54.2); Mean Corpuscular HGB Conc 33.1 GM/DL (32-36); Mean Corpuscular Volume 92.3 FL (87-102); Mean Platelet Volume 10.2 FL (9.6-12.0); Monocytes % 9.3 % (1.7-12.7); Neutrophils % 53.1 % (38.7-73.9); Red Blood Count 3.37 MC/CUMM (3.8-5.5); Red Cell Distribution Width 16.8 % (9.3-17.3); White Blood Count 6.5 T/CUMM (4-12)
[2020-08-23 05:42] LABS: Platelet Count 78 T/CUMM (130-400)
[2020-08-23 06:00] LABS: Albumin 0.9 G/DL (3.4-5.0); Bilirubin,Total 0.8 MG/DL (0.2-1.0); Calcium 7.1 MG/DL (8.5-10.1); Osmolality,Calculated 272.7 MOS/KG (273-304); Total Protein 4.2 G/DL (6.4-8.3)
[2020-08-23 06:12] LABS: Burr Cells Slight; Eosinophils 6 % (0-10); Lymphocytes 17 % (20-55); Ovalocytes Slight; Platelet Estimate Decreased; Segmented Neutrophils 70 % (50-85); Total Cells Counted 100
[2020-08-23] MEDS: PANTOPRAZOLE 40 MG VIAL IV SCH (08:29)
[2020-08-23] MEDS: POTASSIUM CHLORIDE 20 MEQ/15 ML UDCUP PO SCH (08:30)
[2020-08-23] MEDS: MAGNESIUM CHLORIDE 64 MG TABLET PO SCH (08:30)
[2020-08-23] MEDS: CHOLESTYRAMINE 4 GM PACK PO SCH ×2 (08:30→20:08)
[2020-08-23] MEDS: BACITRACIN OINT 0.9 GM PACK TOP SCH ×2 (08:30→20:08)
[2020-08-23] MEDS: MENTHOL/ZINC OXIDE OINT 71 GM JAR TOP SCH ×2 (08:30→20:08)
[2020-08-23] MEDS: METOPROLOL TARTRATE 25 MG TABLET PO SCH ×2 (08:30→20:08)
[2020-08-23] MEDS: DEXT 5% NACL 0.45% KCL 20 MEQ 20 MEQ/1,000 ML BAG IV SCH (14:34)
[2020-08-23] MEDS ORDERED: TUBERCULIN SKIN TEST 0.1 ML SYRINGE INTRADERM ONE (15:33)
[2020-08-24 05:54] LABS: Basophils # 0.1 10*3/uL (0.0-0.2); Basophils % 0.8 % (0.0-0.8); Eosinophils # 0.2 10*3/uL (0.0-0.87); Eosinophils % 2.5 % (0.00-10.9); Immature Granulocytes % 0.7 %; Immature Granulocytes Absolute 0.04 #; Lymphocytes # 1.9 10*3/uL (1.4-4.0); Mean Corpuscular HGB Conc 33.3 GM/DL (32-36); Mean Platelet Volume 10.5 FL (9.6-12.0); Monocytes % 10.8 % (1.7-12.7); Neutrophils % 53.2 % (38.7-73.9); Platelet Count 76 T/CUMM (130-400); Red Blood Count 3.26 MC/CUMM (3.8-5.5); Red Cell Distribution Width 16.6 % (9.3-17.3)
[2020-08-24 06:18] LABS: Hypochromasia 1+; Microcytosis Slight; Platelet Estimate Decreased
[2020-08-24 06:25] LABS: Bilirubin,Total 0.9 MG/DL (0.2-1.0); Calcium 7.3 MG/DL (8.5-10.1); Osmolality,Calculated 274.5 MOS/KG (273-304); Total Protein 4.3 G/DL (6.4-8.3)
[2020-08-24] MEDS: PANTOPRAZOLE 40 MG VIAL IV SCH (08:38)
[2020-08-24] MEDS: CHOLESTYRAMINE 4 GM PACK PO SCH ×2 (08:38→20:17)
[2020-08-24] MEDS: BACITRACIN OINT 0.9 GM PACK TOP SCH ×2 (08:38→20:17)
[2020-08-24] MEDS: METOPROLOL TARTRATE 25 MG TABLET PO SCH ×2 (08:38→20:17)
[2020-08-24] MEDS: POTASSIUM CHLORIDE 20 MEQ/15 ML UDCUP PO SCH (08:38)
[2020-08-24] MEDS: MAGNESIUM CHLORIDE 64 MG TABLET PO SCH (08:38)
[2020-08-24] MEDS: MENTHOL/ZINC OXIDE OINT 71 GM JAR TOP SCH ×2 (08:39→20:17)
[2020-08-24] MEDS: DEXT 5% NACL 0.45% KCL 20 MEQ 20 MEQ/1,000 ML BAG IV SCH (10:51)
[2020-08-24] MEDS: LOPERAMIDE 2 MG CAPSULE PO PRN (20:17)
[2020-08-25 05:57] LABS: Basophils # 0.1 10*3/uL (0.0-0.2); Basophils % 0.8 % (0.0-0.8); Eosinophils # 0.3 10*3/uL (0.0-0.87); Eosinophils % 4.1 % (0.00-10.9); Hemoglobin 10.3 GM/DL (14.0-18.0); Immature Granulocytes % 0.7 %; Immature Granulocytes Absolute 0.04 #; Lymphocytes # 1.7 10*3/uL (1.4-4.0); Lymphocytes % 28.5 % (21.2-54.2); Mean Corpuscular HGB Conc 32.2 GM/DL (32-36); Mean Platelet Volume 10.9 FL (9.6-12.0); Monocytes % 10.8 % (1.7-12.7); Neutrophils % 55.1 % (38.7-73.9); Platelet Count 75 T/CUMM (130-400); Red Blood Count 3.48 MC/CUMM (3.8-5.5); White Blood Count 6.1 T/CUMM (4-12)
[2020-08-25 06:16] LABS: Platelet Estimate Decreased
[2020-08-25 06:17] LABS: Hypochromasia Slight; Microcytosis Slight
[2020-08-25 06:56] LABS: Albumin 1.1 G/DL (3.4-5.0); Bilirubin,Total 1.2 MG/DL (0.2-1.0); Calcium 7.4 MG/DL (8.5-10.1); Osmolality,Calculated 272.7 MOS/KG (273-304); Total Protein 4.4 G/DL (6.4-8.3)
[2020-08-25] MEDS: DEXT 5% NACL 0.45% KCL 20 MEQ 20 MEQ/1,000 ML BAG IV SCH (07:20)
[2020-08-25] MEDS ORDERED: SPIRONOLACTONE 50 MG TABLET PO ONE (08:15)
[2020-08-25] MEDS ORDERED: FUROSEMIDE 20 MG TABLET PO ONE (08:15)
[2020-08-25] MEDS: POTASSIUM CHLORIDE 20 MEQ/15 ML UDCUP PO SCH (08:40)
[2020-08-25] MEDS: METOPROLOL TARTRATE 25 MG TABLET PO SCH ×2 (08:40→20:45)
[2020-08-25] MEDS: BACITRACIN OINT 0.9 GM PACK TOP SCH ×2 (08:41→20:45)
[2020-08-25] MEDS: CHOLESTYRAMINE 4 GM PACK PO SCH ×2 (08:41→20:45)
[2020-08-25] MEDS: PANTOPRAZOLE 40 MG VIAL IV SCH (08:41)
[2020-08-25] MEDS: MENTHOL/ZINC OXIDE OINT 71 GM JAR TOP SCH ×2 (08:41→20:45)
[2020-08-25] MEDS: MAGNESIUM CHLORIDE 64 MG TABLET PO SCH (08:49)
[2020-08-25] MEDS: LOPERAMIDE 2 MG CAPSULE PO PRN ×2 (08:49→20:45)
[2020-08-25] MEDS: POTASSIUM CHLORIDE RIDER 20 MEQ in PREMIX 1 EACH IV PRN ×2 (15:55→17:56)
[2020-08-25] MEDS: diphenhydrAMINE CAP 25 MG CAPSULE PO PRN (22:23)
[2020-08-26] MEDS: DEXT 5% NACL 0.45% KCL 20 MEQ 20 MEQ/1,000 ML BAG IV SCH (03:52)
[2020-08-26] MEDS ORDERED: SPIRONOLACTONE 50 MG TABLET PO ONE (08:08)
[2020-08-26] MEDS: MENTHOL/ZINC OXIDE OINT 71 GM JAR TOP SCH ×2 (09:15→21:03)
[2020-08-26] MEDS: CHOLESTYRAMINE 4 GM PACK PO SCH ×2 (09:15→21:03)
[2020-08-26] MEDS: METOPROLOL TARTRATE 25 MG TABLET PO SCH ×2 (09:16→21:03)
[2020-08-26] MEDS: MAGNESIUM CHLORIDE 64 MG TABLET PO SCH (09:16)
[2020-08-26] MEDS: POTASSIUM CHLORIDE 20 MEQ/15 ML UDCUP PO SCH (09:16)
[2020-08-26] MEDS: LOPERAMIDE 2 MG CAPSULE PO PRN (09:16)
[2020-08-26] MEDS: PANTOPRAZOLE 40 MG VIAL IV SCH (09:16)
[2020-08-26] MEDS: BENZONATATE 100 MG CAPSULE PO PRN (09:16)
[2020-08-26] MEDS: BACITRACIN OINT 0.9 GM PACK TOP SCH ×2 (09:17→21:03)
[2020-08-26] MEDS: diphenhydrAMINE CAP 25 MG CAPSULE PO PRN (21:03)
[2020-08-27] MEDS: DEXT 5% NACL 0.45% KCL 20 MEQ 20 MEQ/1,000 ML BAG IV SCH (00:02)
[2020-08-27] MEDS: PANTOPRAZOLE 40 MG VIAL IV SCH (08:34)
[2020-08-27] MEDS: CHOLESTYRAMINE 4 GM PACK PO SCH ×2 (08:34→21:01)
[2020-08-27] MEDS: POTASSIUM CHLORIDE RIDER 10 MEQ in PREMIX 1 EACH IV PRN (08:34)
[2020-08-27] MEDS: POTASSIUM CHLORIDE 20 MEQ/15 ML UDCUP PO SCH (08:35)
[2020-08-27] MEDS: MAGNESIUM CHLORIDE 64 MG TABLET PO SCH (08:35)
[2020-08-27] MEDS: MENTHOL/ZINC OXIDE OINT 71 GM JAR TOP SCH ×2 (08:35→21:01)
[2020-08-27] MEDS: BACITRACIN OINT 0.9 GM PACK TOP SCH ×2 (08:35→21:00)
[2020-08-27] MEDS: METOPROLOL TARTRATE 25 MG TABLET PO SCH ×2 (08:35→21:01)
[2020-08-27 09:19] LABS: Basophils # 0.1 10*3/uL (0.0-0.2); Basophils % 1.1 % (0.0-0.8); Eosinophils # 0.3 10*3/uL (0.0-0.87); Eosinophils % 4.6 % (0.00-10.9); Hematocrit 31.4 VOL% (42.0-52.0); Hemoglobin 10.4 GM/DL (14.0-18.0); Immature Granulocytes % 0.5 %; Immature Granulocytes Absolute 0.03 #; Lymphocytes % 32.5 % (21.2-54.2); Mean Corpuscular HGB Conc 33.1 GM/DL (32-36); Mean Corpuscular Volume 93.5 FL (87-102); Mean Platelet Volume 10.4 FL (9.6-12.0); Neutrophils % 50.3 % (38.7-73.9); Platelet Count 102 T/CUMM (130-400); Red Blood Count 3.36 MC/CUMM (3.8-5.5); White Blood Count 6.1 T/CUMM (4-12)
[2020-08-27 09:42] LABS: Albumin 1.1 G/DL (3.4-5.0); Bilirubin,Total 0.8 MG/DL (0.2-1.0); Calcium 7.2 MG/DL (8.5-10.1); Osmolality,Calculated 271.8 MOS/KG (273-304); Total Protein 4.6 G/DL (6.4-8.3)
[2020-08-27] MEDS: diphenhydrAMINE CAP 25 MG CAPSULE PO PRN (21:01)
[2020-08-28 05:31] LABS: Basophils # 0.1 10*3/uL (0.0-0.2); Eosinophils # 0.4 10*3/uL (0.0-0.87); Eosinophils % 6.9 % (0.00-10.9); Hemoglobin 10.2 GM/DL (14.0-18.0); Immature Granulocytes % 0.4 %; Immature Granulocytes Absolute 0.02 #; Lymphocytes # 1.7 10*3/uL (1.4-4.0); Mean Corpuscular HGB Conc 32.9 GM/DL (32-36); Mean Corpuscular Volume 92.8 FL (87-102); Mean Platelet Volume 10.6 FL (9.6-12.0); Monocytes % 11.1 % (1.7-12.7); Neutrophils % 47.6 % (38.7-73.9); Platelet Count 106 T/CUMM (130-400); Red Blood Count 3.34 MC/CUMM (3.8-5.5); Red Cell Distribution Width 16.5 % (9.3-17.3); White Blood Count 5.1 T/CUMM (4-12)
[2020-08-28 05:55] LABS: Albumin 1.1 G/DL (3.4-5.0); Bilirubin,Total 1.1 MG/DL (0.2-1.0); Calcium 7.2 MG/DL (8.5-10.1); Osmolality,Calculated 270.8 MOS/KG (273-304); Total Protein 4.4 G/DL (6.4-8.3)
[2020-08-28 06:13] LABS: Microcytosis 1+; Ovalocytes Few; Platelet Estimate Decreased; Polychromasia Slight
[2020-08-28] MEDS: SPIRONOLACTONE 50 MG TABLET PO SCH (09:04)
[2020-08-28] MEDS: POTASSIUM CHLORIDE 20 MEQ TABLET PO SCH (09:04)
[2020-08-28] MEDS: MAGNESIUM CHLORIDE 64 MG TABLET PO SCH (09:04)
[2020-08-28] MEDS: PANTOPRAZOLE 40 MG TABLET PO SCH (09:04)
[2020-08-28] MEDS: CHOLESTYRAMINE 4 GM PACK PO SCH ×2 (09:05→20:42)
[2020-08-28] MEDS: MENTHOL/ZINC OXIDE OINT 71 GM JAR TOP SCH ×2 (09:05→20:42)
[2020-08-28] MEDS: BACITRACIN OINT 0.9 GM PACK TOP SCH ×2 (09:05→20:42)
[2020-08-28] MEDS: METOPROLOL TARTRATE 25 MG TABLET PO SCH ×2 (09:05→20:42)
[2020-08-28] MEDS: diphenhydrAMINE CAP 25 MG CAPSULE PO PRN (20:42)
[2020-08-29 05:44] LABS: Basophils % 0.7 % (0.0-0.8); Eosinophils # 0.3 10*3/uL (0.0-0.87); Eosinophils % 5.6 % (0.00-10.9); Hematocrit 29.6 VOL% (42.0-52.0); Hemoglobin 9.6 GM/DL (14.0-18.0); Immature Granulocytes % 0.5 %; Immature Granulocytes Absolute 0.03 #; Lymphocytes # 2.1 10*3/uL (1.4-4.0); Mean Corpuscular HGB Conc 32.4 GM/DL (32-36); Mean Corpuscular Volume 92.8 FL (87-102); Mean Platelet Volume 10.3 FL (9.6-12.0); Monocytes % 9.7 % (1.7-12.7); Neutrophils % 48.5 % (38.7-73.9); Platelet Count 112 T/CUMM (130-400); Red Blood Count 3.19 MC/CUMM (3.8-5.5); Red Cell Distribution Width 16.4 % (9.3-17.3); White Blood Count 5.9 T/CUMM (4-12)
[2020-08-29 06:13] LABS: Albumin 1.1 G/DL (3.4-5.0); Bilirubin,Total 0.7 MG/DL (0.2-1.0); Calcium 7.3 MG/DL (8.5-10.1); Osmolality,Calculated 270.8 MOS/KG (273-304); Total Protein 4.5 G/DL (6.4-8.3)
[2020-08-29] MEDS: POTASSIUM CHLORIDE 20 MEQ TABLET PO SCH (08:51)
[2020-08-29] MEDS: SPIRONOLACTONE 50 MG TABLET PO SCH (08:51)
[2020-08-29] MEDS: CHOLESTYRAMINE 4 GM PACK PO SCH ×2 (08:51→20:59)
[2020-08-29] MEDS: METOPROLOL TARTRATE 25 MG TABLET PO SCH ×2 (08:51→20:58)
[2020-08-29] MEDS: BACITRACIN OINT 0.9 GM PACK TOP SCH ×2 (08:52→21:02)
[2020-08-29] MEDS: PANTOPRAZOLE 40 MG TABLET PO SCH (08:52)
[2020-08-29] MEDS: MENTHOL/ZINC OXIDE OINT 71 GM JAR TOP SCH ×2 (08:54→21:02)
[2020-08-29] MEDS: MAGNESIUM CHLORIDE 64 MG TABLET PO SCH (08:56)
[2020-08-29] MEDS ORDERED: MAGNESIUM CITRATE 300 ML BOTTLE PO ONE (16:00)
[2020-08-29] MEDS: ACETAMINOPHEN 325 MG TABLET PO PRN (23:58)
[2020-08-30 04:02] LABS: Basophils % 0.7 % (0.0-0.8); Eosinophils # 0.2 10*3/uL (0.0-0.87); Hematocrit 30.4 VOL% (42.0-52.0); Hemoglobin 10.1 GM/DL (14.0-18.0); Immature Granulocytes % 0.5 %; Immature Granulocytes Absolute 0.03 #; Lymphocytes # 1.6 10*3/uL (1.4-4.0); Lymphocytes % 26.7 % (21.2-54.2); Mean Corpuscular HGB Conc 33.2 GM/DL (32-36); Mean Corpuscular Volume 92.1 FL (87-102); Mean Platelet Volume 10.2 FL (9.6-12.0); Monocytes % 11.4 % (1.7-12.7); Neutrophils % 56.7 % (38.7-73.9); Platelet Count 108 T/CUMM (130-400); Red Cell Distribution Width 16.1 % (9.3-17.3); White Blood Count 5.8 T/CUMM (4-12)
[2020-08-30 04:28] LABS: Albumin 1.1 G/DL (3.4-5.0); Bilirubin,Total 0.6 MG/DL (0.2-1.0); Calcium 7.2 MG/DL (8.5-10.1); Osmolality,Calculated 272.7 MOS/KG (273-304); Total Protein 4.5 G/DL (6.4-8.3)
[2020-08-30] MEDS ORDERED: SODIUM PHOSPHATE ENEMA 133 ML BOTTLE RECTAL ONE (06:30)
[2020-08-30] MEDS: MENTHOL/ZINC OXIDE OINT 71 GM JAR TOP SCH ×2 (09:54→21:04)
[2020-08-30] MEDS: MAGNESIUM CHLORIDE 64 MG TABLET PO SCH (09:54)
[2020-08-30] MEDS: METOPROLOL TARTRATE 25 MG TABLET PO SCH ×2 (09:54→21:00)
[2020-08-30] MEDS: SPIRONOLACTONE 50 MG TABLET PO SCH (09:55)
[2020-08-30] MEDS: BACITRACIN OINT 0.9 GM PACK TOP SCH ×2 (09:55→21:00)
[2020-08-30] MEDS: PANTOPRAZOLE 40 MG TABLET PO SCH (09:55)
[2020-08-30] MEDS: POTASSIUM CHLORIDE 20 MEQ TABLET PO SCH (09:56)
[2020-08-30] MEDS ORDERED: BISACODYL 10 MG SUPP RECTAL ONE (10:14)
[2020-08-30] MEDS: CHOLESTYRAMINE 4 GM PACK PO SCH ×2 (10:20→21:04)
[2020-08-31 05:31] LABS: Basophils # 0.1 10*3/uL (0.0-0.2); Basophils % 1.3 % (0.0-0.8); Eosinophils # 0.5 10*3/uL (0.0-0.87); Eosinophils % 9.6 % (0.00-10.9); Hematocrit 30.8 VOL% (42.0-52.0); Hemoglobin 10.1 GM/DL (14.0-18.0); Immature Granulocytes % 0.4 %; Immature Granulocytes Absolute 0.02 #; Lymphocytes # 1.5 10*3/uL (1.4-4.0); Lymphocytes % 31.1 % (21.2-54.2); Mean Corpuscular HGB Conc 32.8 GM/DL (32-36); Mean Corpuscular Volume 93.1 FL (87-102); Mean Platelet Volume 10.4 FL (9.6-12.0); Monocytes % 11.9 % (1.7-12.7); Neutrophils % 45.7 % (38.7-73.9); Platelet Count 120 T/CUMM (130-400); Red Blood Count 3.31 MC/CUMM (3.8-5.5); Red Cell Distribution Width 16.3 % (9.3-17.3); White Blood Count 4.8 T/CUMM (4-12)
[2020-08-31 05:57] LABS: Albumin 1.1 G/DL (3.4-5.0); Bilirubin,Total 1.5 MG/DL (0.2-1.0); Calcium 7.6 MG/DL (8.5-10.1); Osmolality,Calculated 269.8 MOS/KG (273-304); Total Protein 4.4 G/DL (6.4-8.3)
[2020-08-31] MEDS ORDERED: SODIUM PHOSPHATE ENEMA 133 ML BOTTLE RECTAL ONE (06:00)
[2020-08-31] MEDS: SODIUM PHOSPHATE ENEMA 133 ML BOTTLE RECTAL ONE ×2 (06:12→06:38)
[2020-08-31] MEDS ORDERED: propofoL 200 MG/20 ML VIAL IV ONE (09:00)
[2020-08-31] MEDS ORDERED: LIDOCAINE 2% 5 ML VIAL ONE (09:00)
[2020-08-31 11:31] VITALS: BP 101/60
[2020-08-31] MEDS: MAGNESIUM CHLORIDE 64 MG TABLET PO SCH (11:41)
[2020-08-31] MEDS: BACITRACIN OINT 0.9 GM PACK TOP SCH (11:41)
[2020-08-31] MEDS: MENTHOL/ZINC OXIDE OINT 71 GM JAR TOP SCH (11:41)
[2020-08-31] MEDS: METOPROLOL TARTRATE 25 MG TABLET PO SCH (11:42)
[2020-08-31] MEDS: SPIRONOLACTONE 50 MG TABLET PO SCH (11:42)
[2020-08-31] MEDS: POTASSIUM CHLORIDE 20 MEQ TABLET PO SCH (11:43)
[2020-08-31] MEDS: PANTOPRAZOLE 40 MG TABLET PO SCH (11:44)
[2020-08-31] MEDS: CHOLESTYRAMINE 4 GM PACK PO SCH (11:44)
== END 2020-08-31 17:45 | DRG 682 ==
LOC: EDBD → EDUNIT# → N.ED 21:20 → N.EDINP 07-22 00:14 → SUATTDRO 07-22 00:14 → N.4E 07-22 00:31 → N.ICU 07-25 14:44 → N.4E 07-31 10:05
PROVIDERS: ADMIT Specialist; ATTEND Specialist